=== PATIENT | male | born 1950 | race Caucasian/White ===

== ENCOUNTER 2020-11-04 23:09 | Emergency (ER) | payer MEDICARE, SELFPAY ==
[2020-11-04 23:09] VITALS: BP 165/90; PULSE 93; RESP 18; TEMP 36.3; O2SAT 98; BMI 26.6
[2020-11-04 23:12] VITALS: BP 165/90; PULSE 93; RESP 18; TEMP 36.3; O2SAT 98
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
[2020-11-04 23:53] LABS: Absolute Lymphocyte Count 1.42 X10^3/uL (0.83-4.51); Absolute Neutrophil Count 4.9 X10^3/uL (2.0-7.7); Basophil# 0.04 X10^3/uL; Basophil% 0.6 % (0-1); Eosinophil# 0.17 X10^3/uL; Eosinophils% 2.4 % (0-5); Hematocrit 41.1 % (40-54); Hemoglobin 14.2 g/dL (13.0-16.5); Lymphocyte # 1.42 X10^3/ul (4.0); Mean Corp Hgb Conc 34.5 g/dL (32-36); Mean Corpuscular Hgb 30.8 pg (27.0-32.0); Mean Corpuscular Volume 89.2 fL (80-94); Mean Platelet Vol. 9.5 fl (6.2-12.0); Monocyte# 0.54 X10^3/uL; Monocyte% 7.6 % (0-10); NRBC Flagged by Analyzer 0 % (0-5); Neutrophil # 4.92 X10^3/uL (2.7-7.7); Neutrophil % 69.3 % (47-70); Platelet Count 209 K/mm3 (150-450); RBC Distribution Width CV 12.7 % (11.6-14.6); RBC Distribution Width SD 41.9 fl (35.1-43.9); Red Blood Count 4.61 M/mm3 (4.6-6.2); White Blood Count 7.1 K/mm3 (4.4-11.0)
[2020-11-04] MEDS: Cefazolin 1 GM/50 ML BAG IV (23:54)
[2020-11-05 00:34] LABS: Anion Gap 8 (5-15); BUN 17 mg/dL (7-18); BUN/Creat Ratio 13.6 RATIO (10-20); Calcium,Total 8.5 mg/dL (8.5-10.1); Chloride 99 mmol/L (98-107); Creatinine, Serum 1.25 mg/dL (0.70-1.30); EST Glomerular Filtration Rate 60 mL/min (>60); Est Glom Filt Rate - Afr Amer 73 mL/min (>60); Estimated Creatinine Clearance 52.44 ml/min; Glucose 457 mg/dL (74-106); Potassium 4.1 mmol/L (3.5-5.1); Sodium Level 134 mmol/L (136-145)
[2020-11-05] MEDS: Insulin Lispro 100 UNIT/ML INSULN.PEN 12 UNIT SC (01:11)
[2020-11-05 01:15] VITALS: PULSE 90; RESP 17; O2SAT 98
== END 2020-11-05 01:16 | disposition home or self-care (01) ==
PROVIDERS: Emergency Provider Emergency Medicine
DX: T25.231A Burn of second degree of right toe(s) (nail), initial encounter (principal); L03.115 Cellulitis of right lower limb; X08.8XXA Exposure to other specified smoke, fire and flames, initial encounter; Y93.9 Activity, unspecified; Y92.9 Unspecified place or not applicable; Y99.9 Unspecified external cause status; R73.9 Hyperglycemia, unspecified; Z87.891 Personal history of nicotine dependence
CPT/HCPCS: 36415; 80048; 85025; 87040; 96365; 99284; J7050; A4216

== ENCOUNTER 2021-06-21 13:09 | Inpatient (IN) | payer MEDICARE, SELFPAY ==
[2021-06-21] VITALS (27 sets, daily range): BP systolic 104–151; BP diastolic 42–89; PULSE 61–85; RESP 14–23; TEMP 36.2–36.8; O2SAT 97–100; BMI 28.3; BMI 27.8
--- NOTE | 2021-06-21 13:21 | RAD_ITS ---
STUDY: X-RAY CHEST REASON FOR EXAM: Male, 71 years old. Chest pain TECHNIQUE: Single AP portable view of the chest. COMPARISON: None. FINDINGS: EKG electrodes are seen. Elevation of the right hemidiaphragm. The lungs are clear. There is no demonstrated pleural abnormality. Normal size heart. Normal mediastinum and nick. Normal visualized pulmonary arteries. There is atherosclerotic tortuosity of the aortic arch and descending thoracic aorta. There are diffuse degenerative changes of the visualized thoracic spine. There is degenerative osteoarthritis of the bilateral shoulders. There is no demonstrated abnormality of the visualized soft tissue structures of the upper abdomen. RAD/Chest 1 View (Portable) IMPRESSION: No acute abnormality is seen. Electronically Signed: Abiel Espana MD at 13:32 EST , Service support ,
--- NOTE | 2021-06-21 13:21 | EKG12_ITS ---
Test Reason : CP Blood Pressure : / mmHG Vent. Rate : 071 BPM Atrial Rate : 071 BPM P-R Int : 172 ms QRS Dur : 096 ms QT Int : 394 ms P-R-T Axes : 053 -03 086 degrees QTc Int : 428 ms Normal sinus rhythm Inferior infarct , possibly acute Lateral injury pattern ACUTE VT / STEMI Consider right ventricular involvement in acute inferior infarct Abnormal ECG Confirmed by NICOLA NOBLE, BUZZ ([id number]), helicopter utility aircrewman BERNABE JONES ([id number]) on 06/22/2021 11:34:43 AM Referred By: Juana Parson Confirmed By:BUZZ PETERSEN MD
--- NOTE | 2021-06-21 13:22 | EDS_ITS ---
HPI History of Present Illness Chief Complaint: Chest Pain Informant: patient and spouse/S.O. Narrative Narrative: 71-year-old male presents the emergency room with chest pain and left arm pain. He states that he had cataract surgery this morning. Afterwards he w ent out to breakfast. He states the food did not taste very well so he went home where he developed left arm pain and then just pain. He notes that he is a type II diabetic. He is a non-smoker. No coronary artery history. He denies any black or bloody stools or recent bleeding. PFSH PFS Medical History ST elevation myocardial infarction (STEMI) Type 2 diabetes mellitus Home Medications cephalexin 500 mg PO Q6 #40 capsule 11/05/20 [Rx Last Taken Unknown] metformin 1,000 mg PO BIDCM #60 tablet 11/05/20 [Rx Last Taken Unknown] Allergy/AdvReac Type Severity Reaction Status Date / Time No Known Allergies Allergy Verified 06/21/21 13:12 Surgical History Hx of cataract surgery Social History (Updated 06/21/21 @ 13:[address] Keaton Mcintyre, DO) Smoking Status: Former smoker substance use type: does not use ROS ROS ED Constitutional Constitutional ED: Denies chills or weight loss Eyes Eyes: Denies change in vision or diplopia ENT ENT ED: Denies ear pain, rhinorrhea or sore throat Cardiovascular Cardiovascular: Reports chest pain; Denies orthopnea, palpitations or racing heartbeat Respiratory/Chest Respiratory/Chest: Denies cough, dyspnea or orthopnea Gastrointestinal Gastrointestinal: Denies abdominal pain, diarrhea, nausea or vomiting Genitourinary Genitourinary ED: Denies dysuria, hematuria or urinary frequency Musculoskeletal Musculoskeletal: Denies arthralgias or myalgias Integumentary Denies abscess or rash Neurologic Neurologic: Denies headache(s) or weakness Psychiatric Psychiatric: Denies anxiety, depression, suicidal ideation or suicidal thoughts Endocrine Endocrinology: Denies polydipsia, polyphagia or polyuria Allergic/Immunologic Allergic/Immunologic ED: Denies mouth swelling, tongue swelling or urticaria EXAM Physical Exam Const Vital Signs: 06/21/21 13:12 Temperature 97.6 F L Temperature Source Temporal Pulse Rate 66 Respiratory Rate 15 Blood Pressure 151/84 H Blood Pressure Mean 106 Pulse Ox 98 Oxygen Delivery Method Room Air Positive well nourished and well developed General Appearance ED: well developed HEENT Reports normocephalic, head/scalp atraumatic, TM's clear and moist mucous membranes normocephalic and atraumatic Tympanic Membrane ED: Yes TM's clear Eyes EOMs intact bilaterally Eyes Narrative: Right eye dilated Neck no lymphadenopathy, supple and no JVD Resp normal respiratory effort and clear to auscultation bilaterally Cardio regular rate, regular rhythm and no murmurs GI normal to inspection, nondistended, normoactive bowel sounds and non-tender Palpation: soft Back/Spine no CVA tenderness and normal ROM Extremity normal to inspection General Extremety ED: Negative for edema General Extremity: Negative for edema Neuro oriented x3 and CN's II-XII intact bilaterally Sensorium / Orientation: alert Motor Exam: strength 5/5 throughout Psych mental status grossly normal Mood & Affect: Negative for depressed or tearful Skin no rashes or lesions noted and no wounds MDM MDM MDM Narrative Medical decision making narrative: As the patient was being hooked up to the monitor it was noted that he had ST elevation in lead II. I was called to the room and quickly performed history and physical. EKG confirmed STEMI which showed ST elevation 2 3 aVF and also V6 but also with Q waves inferiorly. And STEMI team was called. He received aspirin heparin Brilinta. Dr. Parson came to the room and the patient will be taken to the Director Of Enterprise Applications. My interpretation of the chest x-ray is no acute process. Lab Data Attestation: I reviewed the patient's lab results. EKG Initial EKG: Attestation: I personally reviewed and interpreted this EKG as follows: Comments: STEMI: Sinus rhythm with a ventricular rate of 71 bpm. Discharge Plan Dx/Rx/DC Orders Clinical Impression: ST elevation myocardial infarction (STEMI) Disposition Disposition: Acute Care Hospital [facility] Discharge Date/Time: 06/21/21 13:43
--- NOTE | 2021-06-21 13:30 | CM.ED ---
SOCIAL WORK Reason for Consult: STEMI Alert SW responded to STEMI alert. Patient's , Nyasia in room. Emotional support provided. was escorted to Brazing Machine Tender. Discussed with house sitter, able to have 1 healthy support person come to hospital. Discussed visitor policies with . calling patient's daughter at this time. Steffi Vick, NURSE'S ASSISTANT, C4 PLANNER
[2021-06-21] MEDS: Aspirin 81 MG TAB.CHEW 324 MG PO (13:32)
[2021-06-21] MEDS: TICAGRELOR 90 MG TABLET 180 MG PO (13:32)
[2021-06-21] MEDS: 0.9% Normal Saline 1,000 ML 999 ML IV (13:32)
[2021-06-21] MEDS: Heparin Injection (Vial) 5,000 UNIT/ML VIAL 4000 UNIT IV (13:32)
[2021-06-21 13:33] LABS: Absolute Lymphocyte Count 1.19 X10^3/uL (0.83-4.51); Basophil# 0.03 X10^3/uL; Basophil% 0.4 % (0-1); Eosinophil# 0.11 X10^3/uL; Eosinophils% 1.4 % (0-5); Hematocrit 42.2 % (40-54); Hemoglobin 14.5 g/dL (13.0-16.5); Lymphocyte # 1.19 X10^3/ul (0.83-4.51); Lymphocyte % 15.2 % (19-41); Mean Corp Hgb Conc 34.4 g/dL (32-36); Mean Corpuscular Hgb 31.3 pg (27.0-32.0); Mean Corpuscular Volume 91.1 fL (80-94); Mean Platelet Vol. 9.1 fl (6.2-12.0); Monocyte# 0.47 X10^3/uL; NRBC Flagged by Analyzer 0 % (0-5); Neutrophil # 6.01 X10^3/uL (2.7-7.7); Neutrophil % 76.9 % (47-70); Platelet Count 240 K/mm3 (150-450); RBC Distribution Width CV 12.1 % (11.6-14.6); RBC Distribution Width SD 40.7 fl (35.1-43.9); Red Blood Count 4.63 M/mm3 (4.6-6.2); White Blood Count 7.8 K/mm3 (4.4-11.0)
[2021-06-21 13:41] LABS: Prothrombin Time (Protime)PT. 12.9 SECONDS (11.7-14.9)
[2021-06-21 13:42] LABS: Partial Thromboplast Time 28.5 Seconds (24.1-36.2)
--- NOTE | 2021-06-21 13:50 | CM.ED ---
Patient's daughter arrived and escorted to Computer Information Systems Instructor, daughter informed of visitor policy. This worker to remain available for needs. Steffi Vick, PHYSICIAN ASSISTANT CERTIFIED, FRANCHISE SPECIALIST
[2021-06-21 13:53] LABS: Anion Gap 7 (5-15); BUN 15 mg/dL (7-18); BUN/Creat Ratio 13.6 RATIO (10-20); Calcium,Total 9.2 mg/dL (8.5-10.1); Chloride 100 mmol/L (98-107); EST Glomerular Filtration Rate 70 mL/min (>60); Est Glom Filt Rate - Afr Amer 85 mL/min (>60); Glucose 284 mg/dL (74-106); Potassium 4.2 mmol/L (3.5-5.1); Sodium Level 135 mmol/L (136-145); Troponin-I HS 394 pg/mL (3.0-78.0)
--- NOTE | 2021-06-21 14:15 | CM.ED ---
Multiple family members arriving to ER. Nursing and this worker discussed visitor policy with family. Family irate. This worker met with patient's and daughter in [employer] and again discussed visitor policy and visitor policy for ICU. Explained family unable to switch in and out visitors. understanding. Daughter on phone explaining visitor policy to family. Steffi Vick, HOSPICE HOME HEALTH AIDE, DIPLOMA MAKER
--- NOTE | 2021-06-21 14:44 | EKG12_ITS ---
Test Reason : STEMI Blood Pressure : / mmHG Vent. Rate : 083 BPM Atrial Rate : 083 BPM P-R Int : 166 ms QRS Dur : 082 ms QT Int : 384 ms P-R-T Axes : 051 -36 053 degrees QTc Int : 451 ms Normal sinus rhythm Left axis deviation Inferior-posterior infarct , possibly acute ACUTE PA / STEMI Consider right ventricular involvement in acute inferior infarct Abnormal ECG Confirmed by LAKESHIA NOBLE, GUADALUPE ([id number]), editor farm journal BERNABE JONES ([id number]) on 06/27/2021 11:32:11 AM Referred By: Juana Parson Confirmed By:GUADALUPE ASHER MD
--- NOTE | 2021-06-21 14:52 | PCI.CARDCATH ---
PCI Cardiac Cath Report PCI Report: Procedure performed; #1 Successful PCI/percutaneous coronary intervention of the culprit lesion/occluded distal RCA with SYLVIA 0 flow With predilatation and placement of drug-eluting stent 3 x 40 mm/Orsiro overlap with 3.5 x 22 mm, drug-eluting stent/Orsiro, postdilated with 3.5 x 20 mm NC/emerge MR balloon. Postprocedure 0% stenosis of the RCA which was the culprit occluded in the distal portion, with achievement of SYLVIA III flow. 2. Left heart catheterization 3. Selective left coronary angiography 4. Selective right cholangiography 5. Measurement of LVEDP and left ventriculogram 6. Placement of TR band to the right radial artery arteriotomy site. Preprocedure diagnosis; 71-year-old patient brought into the ER as an emergency with symptoms of chest pain and significantly abnormal EKG with ST elevation in the inferior lead Also noted there is already Q-wave in the inferior lead. Mild ST depression noted in the reciprocal lead V2 to V3 Evidently the patient has cataract surgery and developed chest pain., Seen and evaluated by the ER physician and STEMI alert was called I saw the patient in the ER he was having severe retrosternal chest pain, patient with history of diabetes mellitus he has no prior cardiac history. No history of smoking And he follows regularly with his primary care physician Patient was given 4000 IU heparin, Brilinta 180 mg and aspirin 324 mg in the ER and was taken to the Deli Bakery Clerk as an emergency. Consent; Risk and benefit of the procedure explained in detail to the patient elected to proceed informed consent obtained Diagnostic catheter and interventional equipment used; 1. 6 Palestinian sheath placed in the right radial artery 2. 5 Palestinian JL 3.5 diagnostic catheter 3. 5 Palestinian JR4 catheter 4. 5 Palestinian pigtail catheter 5. 6 Palestinian JR4 guide 6. 0.14 run-through extra floppy 180 cm straight guidewire 7. 2.0 x 15 mm emerge MR balloon 8. 3 x 40 mm drug-eluting stent/Orsiro 9. 3.5 x 22 mm drug-eluting stent/Orsiro 10. 3.5 x 20 mm NC/Emerge balloon 11. TR band applied to right radial artery to maintain hemostasis for arteriotomy site. Medication use in the Deli Bakery Clerk. 1. Heparin IV ACT level 2. 2 bolus of Integrilin with Integrilin infusion 3. 0.5 atropine IV for bradycardia 4. Normal saline IV 0.9% Procedure in detail; Patient brought as an emergency to the Deli Bakery Clerk, Access obtained from the right radial artery with a 6 Palestinian sheath placed in the right radial artery, proceed with the diagnostic catheter 5 Palestinian JL 3.5 advanced ascending aorta cannulated the left main coronary artery without difficulty, multiple views of the left coronary system were obtained, following this catheter exchanged for 5 Palestinian JR4 advanced and cannulated the RCA and 2 views of the right coronary artery which is a large dominant vessel Angiographic view studied and the culprit lesion identified as occluded mid RCA. Then will proceed with the 6 Palestinian JR4 guide advanced to the ascending aorta, cannulated the RCA, then we proceed with 0.014 run-through guidewire across the lesion noted remarkable improvement in the hemodynamic and resolution of the ST segment elevation with improvement in patient's symptoms then we proceed with balloon dilatation using 2 x 15 mm Emerge balloon, followed by placement of a drug-eluting stent 3 x 40 millimeters overlapped by 3.5 x 22 mm, drug-eluting stent, followed by postdilatation using NC balloon 3.5 x 20 mm to the proximal RCA and achieved an excellent result. Remarkable resolution of ST segment elevation patient remained stable hemodynamically and chest pain resolved. Following this we proceed with a 5 Palestinian angled glide pigtail catheter across the aortic valve and placed in the mid ventricle and left ventriculogram obtained 30 degree BE projection. Following this or catheters removed Findings hemodynamics; LV systolic function is preserved ejection fraction of around 55%, mild inferobasal hypokinesia There is no systolic gradient across aortic valve. There is no mitral regurgitation. LVEDP measured,/mild elevation Finding of coronary angiography; 1. Left main coronary artery calcified, with extension of calcification to the mid and proximal LAD Angiographically the left main had 20% proximal stenosis The left main coronary artery bifurcated into LAD and the left circumflex 2. The left anterior descending artery large vessel reach all the way to the apex Angiographically the proximal LAD had diffuse 20% extending into the mid LAD D1 moderate-sized vessel with diffuse proximal atherosclerosis of around 30% D2 also moderate sized vessel with diffuse atherosclerosis of around 20-30% proximal The distal left anterior descending artery had around 40-50% SYLVIA-3 flow noted in the left anterior descending artery There are abundant septal branches. Left circumflex artery had diffuse disease involving the proximal left circumflex artery., Tortuous vessel with a 50% stenosis OM1 had diffuse proximal atherosclerosis of around 50 to 60% small to moderate size. 3. 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 No complication in the Deli Bakery Clerk. Recommendation and plan; 1. Patient to continue on DAPT/Brilinta 90 mg twice daily, with low-dose aspirin 81 mg daily for 1 year 2. Atorvastatin 40 mg at bedtime 3. Control of risk factors patient is diabetic/will defer to medical team 4. We will add low-dose MERLYN inhibitor in addition to carvedilol as tolerated 5. We will schedule the patient for phase [address] [facility] cardiology team 6. Patient will follow with [facility] cardiology team for continuation of cardiac care. Juana Parson MD,FACC,[facility]
--- NOTE | 2021-06-21 15:33 | ED.RN ---
[phone]- shaunna . [phone] cell phone.
--- NOTE | 2021-06-21 15:35 | ECHOCS_ITS ---
Reason For Study: CAD/ASHD Procedure This was a 2D Doppler, Color Flow transthoracic echocardiogram. The study was technically difficult. Contrast injection was performed. Exam performed portable in patient room. Left Ventricle Normal LV size. The estimated ejection fraction is 55-60 %. Right Ventricle Normal right ventricle. Normal systolic function. Atria Normal left atrium. Normal right atrium. Mitral Valve The mitral valve is structurally normal. No prolapse or stenosis seen. No mitral valve insufficiency. Tricuspid Valve Normal tricuspid valve. Trivial tricuspid valve insufficiency. Aortic Valve Normal aortic valve. Pulmonic Valve The pulmonic valve is not well visualized. Great Vessels Normal aortic root. Pericardium/Pleural No pericardial effusion. Medication Diluted definity 3.0ml given slow IV push to enhance endocardial definition. MMode/2D Measurements & Calculations LVIDd: 4.9 cm IVSd: 1.3 cm Ao root diam: 4.1 cm LVIDs: 3.3 cm LVPWd: 1.3 cm RVDd: 3.8 cm FS: 34.0 % LVAd ap4: 34.1 cm2 LVAd ap2: 30.2 cm2 SV(MOD-sp4): 68.2 ml LVLd ap4: 9.1 cm LVLd ap2: 8.3 cm EDV(MOD-sp4): 104.7 ml EDV(MOD-sp2): 90.1 ml EDV(sp4-el): 108.3 ml EDV(sp2-el): 92.5 ml LVAs ap4: 19.5 cm2 LVAs ap2: 15.7 cm2 LVLs ap4: 8.9 cm LVLs ap2: 7.1 cm ESV(MOD-sp4): 36.5 ml ESV(MOD-sp2): 29.1 ml ESV(sp4-el): 36.1 ml ESV(sp2-el): 29.4 ml EF(MOD-sp4): 65.1 % EF(MOD-sp2): 67.7 % EF(sp4-el): 66.7 % SV(MOD-sp2): 61.0 ml SV(sp4-el): 72.3 ml LA dimension(2D): 3.4 cm Time Measurements MV dec time: 0.26 sec Doppler Measurements & Calculations MV E max myron: 51.0 cm/sec Lat Peak E' Myron: 6.9 cm/sec Med Peak E' Myron: 5.0 cm/sec MV A max myron: 67.6 cm/sec E/E' lat: 7.4 E/E' med: 10.1 MV E/A: 0.75 Ao V2 max: 97.2 cm/sec LV V1 max: 80.8 cm/sec PA V2 max: 74.3 cm/sec Ao max P.8 mmHg LV V1 max P.6 mmHg ECHO/Echo Complete W/ Contrast Interpretation Summary The estimated ejection fraction is 55-60 %. Mild inferior Hypokinesia Ordering Physician: Juana Parson Referring Physician: Sreedhar Leroy Performed By: Ashley Newton RDCS, RVT
--- NOTE | 2021-06-21 16:45 | PCM.HP.STD ---
Documented by User: YANA Rivas 06/21/21 17:00 HPI - General General Date of Admission: 06/21/21 Date of Service: 06/21/21 Chief Complaint: Chest pain HPI Narrative AMY MURPHY, is a 71 M who presents complaints of chest pain and left arm pain. Patient states that he is a known diabetic but otherwise has no other medical history. Patient states that you had cataract surgery this morning and afterwards went to breakfast but his food did not taste right so he just went home. Patient states that after arriving home he began to have left arm and chest pain. [facility] Medical History ST elevation myocardial infarction (STEMI) Type 2 diabetes mellitus Home Medications cephalexin 500 mg PO Q6 #40 capsule 11/05/20 [Rx Last Taken Unknown] metformin 1,000 mg PO BIDCM #60 tablet 11/05/20 [Rx Last Taken Unknown] Allergy/AdvReac Type Severity Reaction Status Date / Time No Known Allergies Allergy Verified 06/21/21 13:12 Surgical History Hx of cataract surgery Social History Smoking Status: Former smoker substance use type: does not use ROS Constitutional Constitutional: Denies anorexia, chills, fatigue, fever(s), malaise or weakness Cardiovascular Cardiovascular: Reports chest pain, dyspnea and radiating jaw, neck or arm pain; Denies edema, palpitations or syncope Respiratory/Chest Respiratory/Chest: Denies cough, shortness of breath at rest, shortness of breath with exertion or wheezing Gastrointestinal Gastrointestinal: Denies abdominal pain, constipation, diarrhea, nausea or vomiting Genitourinary Genitourinary: Denies dysuria Musculoskeletal Musculoskeletal: Denies back pain, extremity pain, joint pain or joint stiffness Integumentary Integumentary: Denies dry skin Neurologic Neurologic: Denies abnormal gait, abnormal speech, confusion or dizziness Psychiatric Psychiatric: Denies anxiety or depression Hematologic/Lymphatic Hematologic/Lymphatic: Denies anemia Vital Signs Vital Signs Vital Signs: 06/21/21 13:12 06/21/21 13:20 06/21/21 13:40 Temperature 97.6 F L 97.6 F L Temperature Source Temporal Temporal Pulse Rate 66 66 Respiratory Rate 15 15 Respiratory Effort Normal Non-Labored Respiratory Pattern Normal Blood Pressure 151/84 H 151/84 H 151/84 H Blood Pressure Mean 106 106 Blood Pressure Source Blood Pressure Position Blood Pressure Location Pulse Ox 98 98 Oxygen Delivery Method Room Air Room Air 06/21/21 14:53 06/21/21 15:00 06/21/21 15:15 Temperature 97.1 F L Temperature Source Temporal Pulse Rate 83 80 81 Respiratory Rate 16 16 15 Respiratory Effort Respiratory Pattern Blood Pressure 136/85 H 136/85 H 137/81 H Blood Pressure Mean 102 102 99 Blood Pressure Source Monitor Monitor Monitor Blood Pressure Position Semi-Fowlers Semi-Fowlers Semi-Fowlers Blood Pressure Location Left Arm Left Arm Left Arm Pulse Ox 100 97 98 Oxygen Delivery Method Room Air Room Air Room Air 06/21/21 15:30 06/21/21 15:35 Temperature Temperature Source Pulse Rate 80 Respiratory Rate 17 Respiratory Effort Respiratory Pattern Blood Pressure 129/77 H Blood Pressure Mean 94 Blood Pressure Source Monitor Blood Pressure Position Semi-Fowlers Blood Pressure Location Left Arm Pulse Ox 99 98 Oxygen Delivery Method Room Air Room Air Weight Weight: 188 lb 4.396 oz Body Mass Index (BMI) 27.8 Physical Exam Const alert and oriented x3 HEENT normocephalic and head/scalp atraumatic Eyes conjunctivae normal and no scleral icterus Pupil: dilated Positive for right (Patient had cataract surgery 06/21/2021) Neck supple General: trachea midline Resp normal respiratory effort, normal air movement and clear to auscultation bilaterally Cardio regular rate, regular rhythm, S1 normal heart sound, S2 normal heart sound and peripheral pulses 2+ throughout GI normal to inspection, nondistended, normoactive bowel sounds and soft to palpation Extremity normal capillary refill and no clubbing, cyanosis or edema General Extremity: no tenderness to palpation of joints or extremities Skin General Skin Exam: turgor normal Lesions: no lesions Rashes: no rashes Neuro oriented x3, moves all extremities, no focal motor deficits and no sensory deficits noted Psych thought process normal and affect normal Appearance: appropriate Results Lab / Micro Data Result Diagrams: 06/21/21 13:20 06/21/21 13:20 Labs: Laboratory Results - last 24 hr 06/21/21 13:20: WBC 7.8, RBC 4.63, Hgb 14.5, Hct 42.2, MCV 91.1, MCH 31.3, MCHC 34.4, RDW Std Deviation 40.7, RDW Coeff of Colt 12.1, Plt Count 240, MPV 9.1, Immature Gran % (Auto) 0.100, Neut % (Auto) 76.9 H, Lymph % (Auto) 15.2 L, [place] % (Auto) 6.0, Eos % (Auto) 1.4, Baso % (Auto) 0.4, Absolute Neuts (auto) 6.0, Absolute Lymphs (auto) 1.19, Nucleated RBC % 0 06/21/21 13:20: PT 12.9, INR 1.0, APTT 28.5 06/21/21 13:20: Sodium 135 L, Potassium 4.2, Chloride 100, Carbon Dioxide 28.0, Anion Gap 7, BUN 15, Creatinine 1.10, Estim Creat Clear Calc 60.70, Est GFR (MDRD) Af Amer 85, Est GFR (MDRD) Non-Af 70, BUN/Creatinine Ratio 13.6, Glucose 284 H, Calcium 9.2, Troponin I High Sens 394 H* Radiology Impression Chest X-Ray 06/21/21 13:21 IMPRESSION: No acute abnormality is seen. Electronically Signed: Abiel Espana MD at 13:32 EST , Service support , Assessment & Plan Assessment/Plan (1) Diabetes mellitus: QUALIFIERS: Diabetes mellitus complication detail: with cataract Diabetes mellitus complication status: with ophthalmic complications Diabetes mellitus assisted insulin use: without terminal block assembler use Diabetes mellitus type: type 2 Qualified Code(s): E11.36 - Type 2 diabetes mellitus with diabetic cataract (2) STEMI (ST elevation myocardial infarction): QUALIFIERS: Involved coronary artery: right coronary artery Qualified Code(s): I21.11 - ST elevation (STEMI) myocardial infarction involving right coronary artery PLAN: 1. STEMI -Admit to ICU for continuous cardiac monitoring -Patient underwent cardiac catheterization upon presentation to hospital. Per cardiology note patient's RCA was occluded, 100% lesion, drug-eluting stent x2 placed. -Patient will continue on Brilinta and low-dose aspirin per cardiology along with atorvastatin 40 mg -Per cardiology no MERLYN inhibitor as well as carvedilol will be initiated. -Cardiac rehab ordered -Cardiology to follow -Initial troponin 394 -CBC, BMP, EKG ordered for a.m. -Sinew Integrilin per cardiology orders 2. Diabetes mellitus type 2 -Patient currently managed on Metformin and glipizide -Will hold p.o. medications at this time -AC at bedtime blood sugars with sliding scale insulin ordered -Glucose on BMP 284 3. Cataracts -Patient underwent cataract surgery prior to arrival to ER -We will continue eyedrops as prescribed DVT prophylaxis-not indicated patient on Brilinta This patient was seen by YANA Rivas under the supervision of Dr. Gutierrez. Documented by User: Dr. Sreedhar Gutierrez DO 06/21/21 17:50 HPI - General General Date of Admission: 06/21/21 [facility] Medical History ST elevation myocardial infarction (STEMI) Type 2 diabetes mellitus Home Medications cephalexin 500 mg PO Q6 #40 capsule 11/05/20 [Rx Last Taken Unknown] metformin 1,000 mg PO BIDCM #60 tablet 11/05/20 [Rx Last Taken Unknown] Allergy/AdvReac Type Severity Reaction Status Date / Time No Known Allergies Allergy Verified 06/21/21 13:12 Surgical History Hx of cataract surgery Social History Smoking Status: Former smoker substance use type: does not use Results Lab / Micro Data Result Diagrams: 06/21/21 13:20 06/21/21 13:20 Charges/Coding Addendum Addendum: Patient was seen and examined today independently of Betty Cao, he came to the ER today with complaints of chest pain which he described as pressure-like in nature, he had radiation of the pain down his left arm and it was accompanied by nausea. Patient had cataract surgery on his right eye this morning which went uneventfully. Upon arrival at the emergency room at [facility] today, EKG was performed which showed an injury pattern in the inferior wall leads in keeping with an acute inferior wall [place]-STEMI. Patient was taken to the [facility] immediately for intervention. On examination he appeared in good health and spirits. Vital signs as documented. Skin warm and dry and without overt rashes. Neck without JVD, neck was supple, trachea midline, thyroid was normal. Lungs clear bilaterally, normal air movement was noted. Heart exam notable for regular rhythm, normal sounds and absence of murmurs, rubs or gallops. Abdomen unremarkable and without evidence of organomegaly, masses, or abdominal aortic enlargement. Bowel sounds are present, abdomen is not distended. Extremities nonedematous, no cyanosis was noted, no clubbing was noted. Neuro: Cranial nerves II through XII are grossly intact, no focal motor deficits were noted, sensation to light touch and pinprick intact, motor exam 5/5 throughout. Psych: Patient is alert and oriented x3, he does not appear anxious or depressed, he does not appear agitated. Patient underwent a cardiac catheterization and had two stents inserted in the right coronary artery, patient also had evidence of coronary disease in the left coronary artery but it was not deemed necessary for immediate intervention and instead will be treated with medical treatment. Patient has a history of type 2 diabetes and is on oral medications. Patient was transferred to the ICU for ongoing care after his procedure. He will be seen in the ICU by his beveling machine operator for follow-up examination tomorrow. I have reviewed Betty Cao's history and physical including her medical assessment and plan of care and endorse it. Visit Charges Inpatient E&M: 14334 Init Hosp L3
--- NOTE | 2021-06-21 18:45 | NURSING ---
patient continues to move and use his right arm despite being instructed numerous times to not use/move his arm. Cath site continues to ooze. Patient once again instructed to not move/use his right arm. TR band started with 15ml of air, removed 12ml and have put 6ml of air back into the TR band. Currently has 9ml in the TR band
[2021-06-21] MEDS: OFLOXACIN 0.3% 1 DRP OTIC (22:09)
[2021-06-21] MEDS: Carvedilol 3.125 MG TABLET PO (22:09)
[2021-06-21] MEDS: Atorvastatin Calcium 40 MG Tablet PO (22:10)
[2021-06-21 22:25] LABS: Bedside Glucose 152 mg/dL (70-110)
[2021-06-22] VITALS (25 sets, daily range): BP systolic 94–126; BP diastolic 55–89; PULSE 56–69; RESP 10–21; TEMP 36.3–37.5; O2SAT 94–100
[2021-06-22 04:04] LABS: Absolute Neutrophil Count 6.6 X10^3/uL (2.0-7.7); Basophil# 0.03 X10^3/uL; Basophil% 0.3 % (0-1); Eosinophil# 0.15 X10^3/uL; Eosinophils% 1.7 % (0-5); Hematocrit 36.7 % (40-54); Hemoglobin 12.2 g/dL (13.0-16.5); Lymphocyte % 15.8 % (19-41); Mean Corp Hgb Conc 33.2 g/dL (32-36); Mean Corpuscular Volume 93.1 fL (80-94); Mean Platelet Vol. 9.1 fl (6.2-12.0); Monocyte% 7.9 % (0-10); NRBC Flagged by Analyzer 0 % (0-5); Neutrophil # 6.56 X10^3/uL (2.7-7.7); Neutrophil % 74.1 % (47-70); Platelet Count 201 K/mm3 (150-450); RBC Distribution Width SD 41.4 fl (35.1-43.9); Red Blood Count 3.94 M/mm3 (4.6-6.2); White Blood Count 8.9 K/mm3 (4.4-11.0)
[2021-06-22 04:17] LABS: Anion Gap 7 (5-15); BUN 13 mg/dL (7-18); BUN/Creat Ratio 14.5 RATIO (10-20); Calcium,Total 8.2 mg/dL (8.5-10.1); Chloride 104 mmol/L (98-107); EST Glomerular Filtration Rate 89 mL/min (>60); Est Glom Filt Rate - Afr Amer 107 mL/min (>60); Estimated Creatinine Clearance 74.19 ml/min; Glucose 165 mg/dL (74-106); Potassium 3.7 mmol/L (3.5-5.1); Sodium Level 135 mmol/L (136-145)
--- NOTE | 2021-06-22 05:11 | EKG12_ITS ---
Test Reason : AM EKG Blood Pressure : / mmHG Vent. Rate : 064 BPM Atrial Rate : 064 BPM P-R Int : 168 ms QRS Dur : 076 ms QT Int : 408 ms P-R-T Axes : 049 -38 037 degrees QTc Int : 420 ms Normal sinus rhythm Left axis deviation Inferior infarct , age undetermined Abnormal ECG Confirmed by NICOLA NOBLE, BUZZ ([id number]), marketing editor BERNABE JONES ([id number]) on 06/26/2021 10:45:25 AM Referred By: Juana Parson Confirmed By:BUZZ PETERSEN MD
[2021-06-22 07:42] LABS: Cholesterol 148 mg/dL (200); High Density Lipoprotein 29 mg/dL; Triglycerides 200 mg/dL; Very Low Density Lipoprotein 40 mg/dL (5-40)
[2021-06-22] MEDS: Lisinopril 5 MG Tablet PO ×2 (08:20→08:23)
[2021-06-22] MEDS: Carvedilol 3.125 MG TABLET PO ×2 (08:20→22:44)
[2021-06-22] MEDS: TICAGRELOR 90 MG TABLET PO ×2 (08:23→22:44)
[2021-06-22] MEDS: Insulin Lispro 100 UNIT/ML INSULN.PEN SC ×3 (08:23→22:50)
[2021-06-22] MEDS: OFLOXACIN 0.3% 1 DRP OTIC ×4 (08:24→22:43)
[2021-06-22] MEDS: Aspirin 81 MG TAB.CHEW PO (08:24)
[2021-06-22 10:09] LABS: Hemoglobin A1c 7.1 % (3.8-5.6)
--- NOTE | 2021-06-22 10:29 | CON.PCM.CA_ITS ---
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 He does have moderated diffuse disease of his Cx, OM1. He also has a subtotal acute marginal branch with diffuse disease, these were opted to be treated medically at this time. * He was started on Brilinta, (this will need to be continued for at least one year ) , ASA, Lisinopril, Carvedilol, and Atorvastatin. * plan would be to refer to cardiac rehab on OP basis * Plan it to obtain stress test after f/u appt for evaluation of Cx and OM1. * Obtain echo to evaluate LV function HPI Consult Data Date of Consult: 06/21/21 HPI Narrative HPI Narrative: AMY MURPHY, is a 71 M who presented to the ER on 06/21/2021 with chest pain and significantly abnormal EKG with ST elevation in the inferior lead, Q-wave in the inferior lead. Mild ST depression noted in the reciprocal lead V2 to V3. He had just had cataract surgery when his chest pain occurred. He does have a hx of diabetes. He was urgently sent for a cardiac cath and underwent stenting to his RCA. 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 ST elevation myocardial infarction (STEMI) Type 2 diabetes mellitus Home Medications cephalexin 500 mg PO Q6 #40 capsule 11/05/20 [Rx Last Taken Unknown] metformin 1,000 mg PO BIDCM #60 tablet 11/05/20 [Rx Last Taken Unknown] bromfenac 1 drp RIGHT EYE QHS 06/21/21 [History Last Taken Unknown] ofloxacin 1 drp RIGHT EYE 4X/DAY 06/21/21 [History Last Taken Unknown] Allergy/AdvReac Type Severity Reaction Status Date / Time No Known Allergies Allergy Verified 06/21/21 13:12 Surgical History (Updated 06/22/21 @ 09:09 by Romina Jason) Hx of cataract surgery Presence of coronary angioplasty implant and graft (~06/21/21) Presence of stent in coronary artery (~06/21/21) Social History Smoking Status: Former smoker substance use type: does not use ROS Constitutional Constitutional: Denies anorexia, chills, fatigue, fever(s), malaise or weakness Cardiovascular Cardiovascular: Reports chest pain, dyspnea and radiating jaw, neck or arm pain; Denies edema, palpitations or syncope Respiratory/Chest Respiratory/Chest: Denies cough, shortness of breath at rest, shortness of breath with exertion or wheezing Gastrointestinal Gastrointestinal: Denies abdominal pain, constipation, diarrhea, nausea or vomiting Genitourinary Genitourinary: Denies dysuria Musculoskeletal Musculoskeletal: Denies back pain, extremity pain, joint pain or joint stiffness Integumentary Integumentary: Denies dry skin Neurologic Neurologic: Denies abnormal gait, abnormal speech, confusion or dizziness Psychiatric Psychiatric: Denies anxiety or depression Hematologic/Lymphatic Hematologic/Lymphatic: Denies anemia Physical Exam Const alert and oriented x3 HEENT normocephalic and head/scalp atraumatic Eyes conjunctivae normal and no scleral icterus Pupil: dilated Positive for right (Patient had cataract surgery 06/21/2021) Neck supple General: trachea midline Resp normal respiratory effort, normal air movement and clear to auscultation bilaterally Cardio regular rate, regular rhythm, S1 normal heart sound, S2 normal heart sound and peripheral pulses 2+ throughout GI normal to inspection, nondistended, normoactive bowel sounds and soft to palpation Extremity normal capillary refill and no clubbing, cyanosis or edema General Extremity: no tenderness to palpation of joints or extremities Skin General Skin Exam: turgor normal Lesions: no lesions Rashes: no rashes Neuro oriented x3, moves all extremities, no focal motor deficits and no sensory deficits noted Psych thought process normal and affect normal Appearance: appropriate Risk Stratification Risk Stratification Applicable: No Charges/Coding Visit Charges Office Visits / Consults: [id number] IP Consult L5 Objective Data Vital Signs: Vital Signs Temp Pulse Resp BP Pulse Ox 97.4 F L 66 18 112/70 98 06/22/21 07:00 06/22/21 10:00 06/22/21 10:00 06/22/21 10:00 06/22/21 10:00 Oxygen Delivery Method Room Air Weight: 188 lb 4.396 oz Body Mass Index (BMI) 27.8 Intake & Output: Intake and Output for Last 24 Hours 06/20/21 06/21/21 06/22/21 23:59 23:59 23:59 Intake Total 1247.88 / 1397.88 390 / 390 Output Total 450 / 925 1095 / 1095 Balance 797.88 / 472.88 -705 / -705 Lab / Micro Data Result Diagrams: 06/22/21 03:55 06/22/21 03:55 Labs: Laboratory Results - last 24 hr 06/21/21 13:20: WBC 7.8, RBC 4.63, Hgb 14.5, Hct 42.2, MCV 91.1, MCH 31.3, MCHC 34.4, RDW Std Deviation 40.7, RDW Coeff of Oclt 12.1, Plt Count 240, MPV 9.1, Immature Gran % (Auto) 0.100, Neut % (Auto) 76.9 H, Lymph % (Auto) 15.2 L, [place] % (Auto) 6.0, Eos % (Auto) 1.4, Baso % (Auto) 0.4, Absolute Neuts (auto) 6.0, Absolute Lymphs (auto) 1.19, Nucleated RBC % 0 06/21/21 13:20: PT 12.9, INR 1.0, APTT 28.5 06/21/21 13:20: Sodium 135 L, Potassium 4.2, Chloride 100, Carbon Dioxide 28.0, Anion Gap 7, BUN 15, Creatinine 1.10, Estim Creat Clear Calc 60.70, Est GFR (MDRD) Af Amer 85, Est GFR (MDRD) Non-Af 70, BUN/Creatinine Ratio 13.6, Glucose 284 H, Calcium 9.2, Troponin I High Sens 394 H* 06/21/21 22:07: POC Glucose 152 H 06/22/21 03:55: WBC 8.9, RBC 3.94 L, Hgb 12.2 L, Hct 36.7 L, MCV 93.1, MCH 31.0, MCHC 33.2, RDW Std Deviation 41.4, RDW Coeff of Colt 12.0, Plt Count 201, MPV 9.1, Immature Gran % (Auto) 0.200, Neut % (Auto) 74.1 H, Lymph % (Auto) 15.8 L, [place] % (Auto) 7.9, Eos % (Auto) 1.7, Baso % (Auto) 0.3, Absolute Neuts (auto) 6.6, Absolute Lymphs (auto) 1.40, Nucleated RBC % 0 06/22/21 03:55: Sodium 135 L, Potassium 3.7, Chloride 104, Carbon Dioxide 24.0, Anion Gap 7, BUN 13, Creatinine 0.90, Estim Creat Clear Calc 74.19, Est GFR (MDRD) Af Amer 107, Est GFR (MDRD) Non-Af 89, BUN/Creatinine Ratio 14.5, Glucose 165 H, Calcium 8.2 L 06/22/21 03:55: Triglycerides 200 H, Cholesterol 148, LDL Cholesterol 79, VLDL Cholesterol 40, HDL Cholesterol 29 L 06/22/21 03:55: Hemoglobin A1c 7.1 H Cardiology Labs/Tests 06/21/21 13:20: WBC 7.8, RBC 4.63, Hgb 14.5, Hct 42.2, MCV 91.1, MCH 31.3, MCHC 34.4, Plt Count 240, MPV 9.1, Immature Gran % (Auto) 0.100, Neut % (Auto) 76.9 H , Lymph % (Auto) 15.2 L, [place] % (Auto) 6.0, Eos % (Auto) 1.4, Baso % (Auto) 0.4, Absolute Neuts (auto) 6.0, Nucleated RBC % 0 06/21/21 13:20: PT 12.9, INR 1.0, APTT 28.5 06/21/21 13:20: Sodium 135 L, Potassium 4.2, Chloride 100, Carbon Dioxide 28.0, Anion Gap 7, BUN 15, Creatinine 1.10, Est GFR (MDRD) Af Amer 85, Est GFR (MDRD) Non-Af 70, BUN/Creatinine Ratio 13.6, Glucose 284 H, Calcium 9.2 06/22/21 03:55: WBC 8.9, RBC 3.94 L, Hgb 12.2 L, Hct 36.7 L, MCV 93.1, MCH 31.0, MCHC 33.2, Plt Count 201, MPV 9.1, Immature Gran % (Auto) 0.200, Neut % (Auto) 74.1 H, Lymph % (Auto) 15.8 L, [place] % (Auto) 7.9, Eos % (Auto) 1.7, Baso % (Auto) 0.3, Absolute Neuts (auto) 6.6, Nucleated RBC % 0 06/22/21 03:55: Sodium 135 L, Potassium 3.7, Chloride 104, Carbon Dioxide 24.0, Anion Gap 7, BUN 13, Creatinine 0.90, Est GFR (MDRD) Af Amer 107, Est GFR (MDRD) Non-Af 89, BUN/Creatinine Ratio 14.5, Glucose 165 H, Calcium 8.2 L 06/22/21 03:55: Triglycerides 200 H, Cholesterol 148, LDL Cholesterol 79, VLDL Cholesterol 40, HDL Cholesterol 29 L 06/22/21 03:55: Hemoglobin A1c 7.1 H Cardiac cath with PCI 06/21/2021: LV systolic function is preserved ejection fraction of around 55%, mild inferobasal hypokinesia There is no systolic gradient across aortic valve. There is no mitral regurgitation. LVEDP measured,/mild elevation Finding of coronary angiography; 1. Left main coronary artery calcified, with extension of calcification to the mid and proximal LAD Angiographically the left main had 20% proximal stenosis The left main coronary artery bifurcated into LAD and the left circumflex 2. The left anterior descending artery large vessel reach all the way to the apex Angiographically the proximal LAD had diffuse 20% extending into the mid LAD D1 moderate-sized vessel with diffuse proximal atherosclerosis of around 30% D2 also moderate sized vessel with diffuse atherosclerosis of around 20-30% proximal The distal left anterior descending artery had around 40-50% SYLVIA-3 flow noted in the left anterior descending artery There are abundant septal branches. Left circumflex artery had diffuse disease involving the proximal left circumflex artery., Tortuous vessel with a 50% stenosis OM1 had diffuse proximal atherosclerosis of around 50 to 60% small to moderate size. 3. 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 No complication in the Test Development Engineer. Radiography Diagnostic Testing: Radiology Impression Chest X-Ray 06/21/21 13:21 IMPRESSION: No acute abnormality is seen. Electronically Signed: Abiel Espana MD at 13:32 EST , Service support ,
--- NOTE | 2021-06-22 11:05 | CASEMGMT ---
RN CM Face to Face with patient for initial transition planning/care coordination assessment. RN CM introduced self and role at [facility]. Patient lying in bed, alert and oriented. Patient willing to participate in assessment and is able to answer all questions appropriately. Care providers, pharmacy, and demographics verified. Patient wishes to discharge home, denies need for home health at this time. Patient states he has no further needs or concerns at this time. CM to follow for discharge planning needs that may arise. PCP: Rad Specialists: JARRETT Preferred Pharmacy: [facility] savings card provided to patient. Insurance: [employer] Prescription Benefit: yes Living Will/HPOA: yes, Nyasia Maria LNOK: Living Arrangements: Patient lives with in a single story home with 2 steps and railing to enter the home. Patient is independent at home. Transportation: self/ DME/HHC: Patient states he has raised toilet, walker, wheelchair at home. Patient denies previous HHC or SNF Disposition Plan: Patient to discharge home with family support and follow-up plans in place. Darcy DEAL, RN, CM
--- NOTE | 2021-06-22 11:13 | PN.CARD_ITS ---
Documented by User: Romina KYLE, ANABELLA 06/22/21 11:19 Subjective Subjective Pt is doing better today, no chest pain. Objective Data Vital Signs: Vital Signs Temp Pulse Resp BP Pulse Ox 97.4 F L 66 18 112/70 98 06/22/21 07:00 06/22/21 10:00 06/22/21 10:00 06/22/21 10:00 06/22/21 10:00 Oxygen Delivery Method Room Air Weight: 188 lb 4.396 oz Body Mass Index (BMI) 27.8 Intake & Output: Intake and Output for Last 24 Hours 06/20/21 06/21/21 06/22/21 23:59 23:59 23:59 Intake Total 1247.88 / 1397.88 390 / 390 Output Total 450 / 925 1095 / 1095 Balance 797.88 / 472.88 -705 / -705 Lab / Micro Data Result Diagrams: 06/22/21 03:55 06/22/21 03:55 Labs: Laboratory Results - last 24 hr 06/21/21 13:20: WBC 7.8, RBC 4.63, Hgb 14.5, Hct 42.2, MCV 91.1, MCH 31.3, MCHC 34.4, RDW Std Deviation 40.7, RDW Coeff of Colt 12.1, Plt Count 240, MPV 9.1, Immature Gran % (Auto) 0.100, Neut % (Auto) 76.9 H, Lymph % (Auto) 15.2 L, [place] % (Auto) 6.0, Eos % (Auto) 1.4, Baso % (Auto) 0.4, Absolute Neuts (auto) 6.0, Absolute Lymphs (auto) 1.19, Nucleated RBC % 0 06/21/21 13:20: PT 12.9, INR 1.0, APTT 28.5 06/21/21 13:20: Sodium 135 L, Potassium 4.2, Chloride 100, Carbon Dioxide 28.0, Anion Gap 7, BUN 15, Creatinine 1.10, Estim Creat Clear Calc 60.70, Est GFR (MDRD) Af Amer 85, Est GFR (MDRD) Non-Af 70, BUN/Creatinine Ratio 13.6, Glucose 284 H, Calcium 9.2, Troponin I High Sens 394 H* 06/21/21 22:07: POC Glucose 152 H 06/22/21 03:55: WBC 8.9, RBC 3.94 L, Hgb 12.2 L, Hct 36.7 L, MCV 93.1, MCH 31.0, MCHC 33.2, RDW Std Deviation 41.4, RDW Coeff of Colt 12.0, Plt Count 201, MPV 9.1, Immature Gran % (Auto) 0.200, Neut % (Auto) 74.1 H, Lymph % (Auto) 15.8 L, [place] % (Auto) 7.9, Eos % (Auto) 1.7, Baso % (Auto) 0.3, Absolute Neuts (auto) 6.6, Absolute Lymphs (auto) 1.40, Nucleated RBC % 0 06/22/21 03:55: Sodium 135 L, Potassium 3.7, Chloride 104, Carbon Dioxide 24.0, Anion Gap 7, BUN 13, Creatinine 0.90, Estim Creat Clear Calc 74.19, Est GFR (MDRD) Af Amer 107, Est GFR (MDRD) Non-Af 89, BUN/Creatinine Ratio 14.5, Glucose 165 H, Calcium 8.2 L 06/22/21 03:55: Triglycerides 200 H, Cholesterol 148, LDL Cholesterol 79, VLDL Cholesterol 40, HDL Cholesterol 29 L 06/22/21 03:55: Hemoglobin A1c 7.1 H Cardiology Labs/Tests 06/21/21 13:20: WBC 7.8, RBC 4.63, Hgb 14.5, Hct 42.2, MCV 91.1, MCH 31.3, MCHC 34.4, Plt Count 240, MPV 9.1, Immature Gran % (Auto) 0.100, Neut % (Auto) 76.9 H , Lymph % (Auto) 15.2 L, [place] % (Auto) 6.0, Eos % (Auto) 1.4, Baso % (Auto) 0.4, Absolute Neuts (auto) 6.0, Nucleated RBC % 0 06/21/21 13:20: PT 12.9, INR 1.0, APTT 28.5 06/21/21 13:20: Sodium 135 L, Potassium 4.2, Chloride 100, Carbon Dioxide 28.0, Anion Gap 7, BUN 15, Creatinine 1.10, Est GFR (MDRD) Af Amer 85, Est GFR (MDRD) Non-Af 70, BUN/Creatinine Ratio 13.6, Glucose 284 H, Calcium 9.2 06/22/21 03:55: WBC 8.9, RBC 3.94 L, Hgb 12.2 L, Hct 36.7 L, MCV 93.1, MCH 31.0, MCHC 33.2, Plt Count 201, MPV 9.1, Immature Gran % (Auto) 0.200, Neut % (Auto) 74.1 H, Lymph % (Auto) 15.8 L, [place] % (Auto) 7.9, Eos % (Auto) 1.7, Baso % (Auto) 0.3, Absolute Neuts (auto) 6.6, Nucleated RBC % 0 06/22/21 03:55: Sodium 135 L, Potassium 3.7, Chloride 104, Carbon Dioxide 24.0, Anion Gap 7, BUN 13, Creatinine 0.90, Est GFR (MDRD) Af Amer 107, Est GFR (MDRD) Non-Af 89, BUN/Creatinine Ratio 14.5, Glucose 165 H, Calcium 8.2 L 06/22/21 03:55: Triglycerides 200 H, Cholesterol 148, LDL Cholesterol 79, VLDL Cholesterol 40, HDL Cholesterol 29 L 06/22/21 03:55: Hemoglobin A1c 7.1 H Rhythm: SR ECHO: pending Cardiac Cath with PCI: Cardiac cath with PCI 06/21/2021: LV systolic function is preserved ejection fraction of around 55%, mild inferobasal hypokinesia There is no systolic gradient across aortic valve. There is no mitral regurgitation. LVEDP measured,/mild elevation Finding of coronary angiography; 1. Left main coronary artery calcified, with extension of calcification to the mid and proximal LAD Angiographically the left main had 20% proximal stenosis The left main coronary artery bifurcated into LAD and the left circumflex 2. The left anterior descending artery large vessel reach all the way to the apex Angiographically the proximal LAD had diffuse 20% extending into the mid LAD D1 moderate-sized vessel with diffuse proximal atherosclerosis of around 30% D2 also moderate sized vessel with diffuse atherosclerosis of around 20-30% proximal The distal left anterior descending artery had around 40-50% SYLVIA-3 flow noted in the left anterior descending artery There are abundant septal branches. Left circumflex artery had diffuse disease involving the proximal left circumflex artery., Tortuous vessel with a 50% stenosis OM1 had diffuse proximal atherosclerosis of around 50 to 60% small to moderate size. 3. 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 No complication in the Lavatory Attendant. Radiography Diagnostic Testing: Radiology Impression Chest X-Ray 06/21/21 13:21 IMPRESSION: No acute abnormality is seen. Electronically Signed: Abiel Espana MD at 13:32 EST , Service support , Physical Exam Const alert and oriented x3 HEENT normocephalic and head/scalp atraumatic Eyes PERRL, EOMs intact bilaterally, conjunctivae normal and no scleral icterus Neck supple General: trachea midline Resp normal respiratory effort, normal air movement and clear to auscultation bilaterally Cardio regular rate, regular rhythm, S1 normal heart sound, S2 normal heart sound and peripheral pulses 2+ throughout GI normal to inspection, nondistended, normoactive bowel sounds and soft to palpation Extremity normal capillary refill and no clubbing, cyanosis or edema General Extremity: no tenderness to palpation of joints or extremities Skin General Skin Exam: turgor normal Lesions: no lesions Rashes: no rashes Neuro oriented x3, moves all extremities, no focal motor deficits and no sensory deficits noted Psych thought process normal and affect normal Appearance: appropriate Assessment & Plan Assessment/Plan (1) STEMI (ST elevation myocardial infarction): QUALIFIERS: Involved coronary artery: right coronary artery Qualified Code(s): I21.11 - ST elevation (STEMI) myocardial infarction involving right coronary artery (2) Atherosclerotic heart disease of [place] coronary artery without angina pectoris: (3) Diabetes mellitus: QUALIFIERS: Diabetes mellitus complication detail: with cataract Diabetes mellitus complication status: with ophthalmic complications Diabetes mellitus group home insulin use: without dedicated intermodal truck driver use Diabetes mellitus type: type 2 Qualified Code(s): E11.36 - Type 2 diabetes mellitus with diabetic cataract PLAN: * Pt had stenting to his RCA. He does have moderated diffuse disease of his Cx, OM1. He also has a subtotal acute marginal branch with diffuse disease, these were opted to be treated medically at this time. * He was started on Brilinta, (this will need to be continued for at least one year ) , ASA, Lisinopril, Carvedilol, and Atorvastatin. * plan would be to refer to cardiac rehab on OP basis * Plan it to obtain stress test after f/u appt for evaluation of Cx and OM1. * echo pending Charges/Coding Visit Charges Inpatient E&M: 05166 Subs Hosp L3 Documented by User: Dr. Juana Parson MD 06/22/21 14:47 Subjective Subjective This patient seen and evaluated today at bedside along with the nursing staff and the midlevel Stable clinically no symptoms reported today post PCI/STEMI acute inferior LA Lab / Micro Data Result Diagrams: 06/22/21 03:55 06/22/21 03:55 Physical Exam Narrative Patient alert and orientated Cardiac examination; S1-S2 normal, no murmur, no systolic or diastolic murmur, no pericardial rub monitoring manager revealed normal sinus rhythm. Chest examination; clear to auscultation bilateral with no added sounds. Examination of the abdomen; soft Examination lower extremity no lower extremity edema Central nervous system exam no focal neurological deficit. Assessment & Plan Assessment/Plan (1) STEMI (ST elevation myocardial infarction): QUALIFIERS: Involved coronary artery: right coronary artery Qualified Code(s): I21.11 - ST elevation (STEMI) myocardial infarction involving right coronary artery (2) Atherosclerotic heart disease of [place] coronary artery without angina pectoris: (3) Diabetes mellitus: QUALIFIERS: Diabetes mellitus complication detail: with cataract Diabetes mellitus complication status: with ophthalmic complications Diabetes mellitus group home insulin use: without group home use Diabetes mellitus type: type 2 Qualified Code(s): E11.36 - Type 2 diabetes mellitus with diabetic cataract (4) Presence of stent in coronary artery: PLAN: This patient seen and evaluated today, post STEMI/acute inferior LA Underwent successful PCI of the culprit lesion occluded distal RCA with placemen t of drug-eluting stent Postprocedure patient remained stable hemodynamically with no symptoms of chest pain. Right radial pulses palpable From cardiac standpoint we reviewed and discussed all his current medication patient will continue on DAPT/dual antiplatelet therapy with Brilinta 90 mg twice daily in addition to low-dose aspirin 81 mg Beta-sujit carvedilol, statin atorvastatin and MERLYN inhibitor lisinopril patient had history of diabetes I will defer to the medical team to manage his the diabetes and will plan to follow-up with the [facility] cardiology team as an outpatient. Bedside echocardiogram LV function is preserved with no significant valvular abnormality. Also patient will be scheduled for cardiac rehab phase 1.
[2021-06-22 11:55] LABS: Bedside Glucose 147 mg/dL (70-110)
--- NOTE | 2021-06-22 12:33 | CRPHASE1 ---
Patient Communication PHII Cardiac Rehab Discussed with Patient:: Yes Guide to Cardiac Rehab Given to Patient:: Yes Cardiac Rehab Facility Choice List Given to Patient:: Yes Choice Program [facility] CR PHII:: Communication Given to CR Choice Program Other:: Communication Given to CR Network Contract Manager:: Juana Parson Phase II Cardiac Rehab:: Yes Sessions:: 36 sessions - 3 days/wk, 12 weeks Cardiac Rehabilitation Info Cardiac Rehabilitation Program Information: Cardiac Rehabilitation is important for patients like you who are recovering from a heart problem. Cardiac rehabilitation programs are recognized as integral to the continued care of the patient with coronary heart disease. The cardiac rehabilitation program is designed to optimize a patient's physical, psychological, and social functioning. Health home care assistant work in cardiac rehabilitation programs and assist you with getting the treatments you need to get stronger and healthier - like exercise, healthy eating habits, and medications. Cardiac rehabilitation has been show to help people with heart problems live longer and have better life enjoyment than people who do not go to cardiac rehabilitation. Please contact the Cardiac Rehabilitation Program at [facility] at in two weeks if you have not heard from them.
--- NOTE | 2021-06-22 12:34 | CRPH1.INSTRU ---
General Education CAD and cardiac anatomy and function:: Patient communicates acknowledgment Explanation of diagnoses and procedures:: Patient communicates acknowledgment Sign/Symptoms of [place]:: Patient communicates acknowledgment Antiplatelet therapy: Patient communicates acknowledgment Smoking Patient Nicotine/Smoking Risk Factors Are:: Non-smoker Recommendations Include:: Previous smoker; encourage continued cessation Nicotine/Smoking Response Code:: Patient communicates acknowledgment Dyslipidemia Patient Dyslipidemia Risk Factors Are:: Total Cholesterol, Triglycerides, HDL, LDL Recommendations Include:: Lipid profile provided, Reviewed NCEP/ATP guidelines, Therapeutic Lifestyle Change dietary guidelines Dyslipidemia Response Code:: Patient communicates acknowledgment Overweight/Obesity Patient Overweight/Obesity Risk Factors Are:: Overweight = 26-29 Recommendations Include:: Weight loss of 5-10%, Reduced calorie diet Overweight/Obesity:: Patient communicates acknowledgment Hypertension Patient Hypertension Risk Factors Are:: No documented hx of HTN Heart Disease Patient Heart Disease Risk Factors Are:: Family history of heart disease < 65 years old Recommendations Include:: Educated family members of their risk, Educated family members of importance of prevention of heart disease Heart Disease Response Code:: Patient communicates acknowledgment Diabetes Patient Diabetes Risk Factors Are:: Elevated blood sugars Recommendations Include:: Maintain fasting blood sugars 70-110 md/dL, Maintain HgbA1c of 6% or less, Monitor blood sugar as prescribed, Diabetic dietary guidelines, Decrease/maintain body weight Diabetes:: Patient communicates acknowledgment Sedentary Patient Sedentary Risk Factors Are:: Lack of regular exercise Recommendations Include:: Aerobic exercise 5-7 times/week for 20-30 minutes continuously, Benefits of regular exercise, Discussed home walking program, Monitored Outpatient Cardiac Rehab Sedentary Response Code:: Patient communicates acknowledgment Stress Recommendations Include:: Identification of stressors, and assessment of coping skills, Stress management techniques Stress Response Code:: Patient communicates acknowledgment
--- NOTE | 2021-06-22 16:01 | PN.HOSP_ITS ---
Subjective Subjective Patient presented yesterday as a STEMI and had 2 stents placed in the RCA. No issues overnight. The patient states that his inability to sleep is disrupted by the compression device on his wrist but once that was removed at 4 AM he got good sleep. He is anxious to go home. Objective Data Objective Data Vital Signs: Vital Signs Temp Pulse Resp BP Pulse Ox 98.1 F 66 18 96/66 98 06/22/21 12:00 06/22/21 13:00 06/22/21 13:00 06/22/21 13:00 06/22/21 13:00 Oxygen Delivery Method Room Air Weight: 85.4 kg Body Mass Index (BMI) 27.8 Intake & Output: Intake and Output for Last 24 Hours 06/20/21 06/21/21 06/22/21 23:59 23:59 23:59 Intake Total 1247.88 / 1397.88 750 / 750 Output Total 450 / 925 1345 / 1345 Balance 797.88 / 472.88 -595 / -595 Lab / Micro Data Result Diagrams: 06/22/21 03:55 06/22/21 03:55 Labs: Laboratory Results - last 24 hr 06/21/21 22:07: POC Glucose 152 H 06/22/21 03:55: WBC 8.9, RBC 3.94 L, Hgb 12.2 L, Hct 36.7 L, MCV 93.1, MCH 31.0, MCHC 33.2, RDW Std Deviation 41.4, RDW Coeff of Colt 12.0, Plt Count 201, MPV 9.1, Immature Gran % (Auto) 0.200, Neut % (Auto) 74.1 H, Lymph % (Auto) 15.8 L, [place] % (Auto) 7.9, Eos % (Auto) 1.7, Baso % (Auto) 0.3, Absolute Neuts (auto) 6.6, Absolute Lymphs (auto) 1.40, Nucleated RBC % 0 06/22/21 03:55: Sodium 135 L, Potassium 3.7, Chloride 104, Carbon Dioxide 24.0, Anion Gap 7, BUN 13, Creatinine 0.90, Estim Creat Clear Calc 74.19, Est GFR (MDR D) Af Amer 107, Est GFR (MDRD) Non-Af 89, BUN/Creatinine Ratio 14.5, Glucose 165 H, Calcium 8.2 L 06/22/21 03:55: Triglycerides 200 H, Cholesterol 148, LDL Cholesterol 79, VLDL Cholesterol 40, HDL Cholesterol 29 L 06/22/21 03:55: Hemoglobin A1c 7.1 H 06/22/21 11:50: POC Glucose 147 H Radiography Diagnostic Testing: Radiology Impression Echocardiogram 06/21/21 15:35 Interpretation Summary The estimated ejection fraction is 55-60 %. Mild inferior Hypokinesia Ordering Physician: Juana Parson Referring Physician: Sreedhar Leroy Performed By: Ashley Newton, WANDA, RVT Physical Exam Const alert, oriented x3 and no apparent distress Constitutional Narrative: Overweight older white male lying in bed, appears comfortable, nontoxic, very pleasant Exam Limitations: no limitations Nutritional Appearance: overweight HEENT head/scalp atraumatic and moist oral mucous membranes Head and Scalp: normocephalic Resp normal respiratory effort, no retractions, no use of accessory muscles and clear to auscultation bilaterally Auscultation: Negative for crackles, rales, rhonchi or wheezes Cardio regular rate, regular rhythm, S1 normal heart sound, S2 normal heart sound, no murmurs, no rub, no gallops, no clicks and no JVD GI normal to inspection, nondistended, normoactive bowel sounds, soft to palpation, non-tender and non-distended Extremity no clubbing, cyanosis or edema Extremity Narrative: Right radial cath site has bandage in place without any bleeding noted, mildly tender Peripheral Pulses: Yes pulses 2+ throughout Neuro oriented x3, moves all extremities and no focal motor deficits Sensorium / Orientation: awake and alert Speech: speech normal Assessment & Plan Assessment/Plan (1) STEMI (ST elevation myocardial infarction): QUALIFIERS: Involved coronary artery: right coronary artery Qualified Code(s): I21.11 - ST elevation (STEMI) myocardial infarction involving right coronary artery PLAN: STEMI -PCI 06/21/2021 with EARL x2 to RCA -On cath patient was noted to have moderate diffuse disease of his circumflex and OM1 as well as a subtotal acute marginal branch with diffuse disease -Medical treatment opted for at this time and outpatient stress test has been recommended after follow-up -Continue Brilinta, aspirin, MERLYN, carvedilol, and atorvastatin -Cardiac rehab referral made -No significant ectopy or arrhythmia noted since intervention -Patient has fairly good control of his diabetes with a hemoglobin A1c of 7.1 -Lipids are overall unimpressive with a total cholesterol of 148, LDL 79, HDL 29 -Cardiology following -Probable discharge 06/23/2021 DM-2 -Overall control is fairly good -Globin A1c on admission was 7.1 -Continue diet control and Metformin upon discharge -SSI with Accu-Cheks while admitted History of tobacco abuse -Remote DVT prophylaxis -Ambulation protocol Charges/Coding Visit Charges Inpatient E&M: 06840 Subs Hosp L2
[2021-06-22 17:16] LABS: Bedside Glucose 165 mg/dL (70-110)
[2021-06-22] MEDS: Atorvastatin Calcium 40 MG Tablet PO (22:44)
[2021-06-22 23:11] LABS: Bedside Glucose 179 mg/dL (70-110)
--- NOTE | 2021-06-23 01:30 | PCS.PANDOC ---
PANDEMIC DOCUMENTATION INITIATED: Date: 03/27/2021 Time: 190
[2021-06-23 03:00] VITALS: PULSE 59
[2021-06-23 04:39] VITALS: BP 98/54; PULSE 60; RESP 16; TEMP 37.1; O2SAT 96
[2021-06-23] MEDS: Insulin Lispro 100 UNIT/ML INSULN.PEN SC ×2 (06:18→11:20)
[2021-06-23 06:51] LABS: Bedside Glucose 173 mg/dL (70-110)
[2021-06-23 06:54] LABS: Hematocrit 35.5 % (40-54); Hemoglobin 12.1 g/dL (13.0-16.5); Mean Corp Hgb Conc 34.1 g/dL (32-36); Mean Corpuscular Hgb 30.9 pg (27.0-32.0); Mean Corpuscular Volume 90.8 fL (80-94); Mean Platelet Vol. 9.3 fl (6.2-12.0); Platelet Count 193 K/mm3 (150-450); RBC Distribution Width CV 12.3 % (11.6-14.6); RBC Distribution Width SD 40.5 fl (35.1-43.9); Red Blood Count 3.91 M/mm3 (4.6-6.2); White Blood Count 7.5 K/mm3 (4.4-11.0)
[2021-06-23 06:57] VITALS: O2SAT 95
[2021-06-23 07:01] VITALS: PULSE 74
[2021-06-23 09:57] VITALS: BP 107/72; PULSE 66; RESP 14; TEMP 36.9; O2SAT 96
[2021-06-23] MEDS: Carvedilol 3.125 MG TABLET PO (10:01)
[2021-06-23] MEDS: TICAGRELOR 90 MG TABLET PO (10:01)
[2021-06-23] MEDS: OFLOXACIN 0.3% 1 DRP OTIC ×2 (10:02→14:08)
--- NOTE | 2021-06-23 10:14 | PN.CARD_ITS ---
Documented by User: ANABELLA Beyer 06/23/21 10:16 Subjective Subjective Pt is doing better today, no chest pain. Objective Data Vital Signs: Vital Signs Temp Pulse Resp BP Pulse Ox 98.5 F 66 14 107/72 96 06/23/21 09:57 06/23/21 09:57 06/23/21 09:57 06/23/21 09:57 06/23/21 09:57 Oxygen Delivery Method Room Air Weight: 183 lb 10.321 oz Body Mass Index (BMI) 27.8 Intake & Output: Intake and Output for Last 24 Hours 06/21/21 06/22/21 06/23/21 23:59 23:59 23:59 Intake Total 1247.88 / 1397.88 990 / 990 Output Total 450 / 925 1595 / 1595 Balance 797.88 / 472.88 -605 / -605 Lab / Micro Data Result Diagrams: 06/23/21 06:40 06/22/21 03:55 Labs: Laboratory Results - last 24 hr 06/22/21 11:50: POC Glucose 147 H 06/22/21 17:09: POC Glucose 165 H 06/22/21 22:50: POC Glucose 179 H 06/23/21 06:15: POC Glucose 173 H 06/23/21 06:40: WBC 7.5, RBC 3.91 L, Hgb 12.1 L, Hct 35.5 L, MCV 90.8, MCH 30.9, MCHC 34.1, RDW Std Deviation 40.5, RDW Coeff of Colt 12.3, Plt Count 193, MPV 9.3 Cardiology Labs/Tests 06/23/21 06:40: WBC 7.5, RBC 3.91 L, Hgb 12.1 L, Hct 35.5 L, MCV 90.8, MCH 30.9, MCHC 34.1, Plt Count 193, MPV 9.3 Rhythm: SR Radiography Diagnostic Testing: Radiology Impression Echocardiogram 06/21/21 15:35 Interpretation Summary The estimated ejection fraction is 55-60 %. Mild inferior Hypokinesia Ordering Physician: Juana Parson Referring Physician: Sreedhar Leroy Performed By: Ashley Newton, RDCS, RVT Physical Exam Const alert and oriented x3 HEENT normocephalic and head/scalp atraumatic Eyes PERRL, EOMs intact bilaterally, conjunctivae normal and no scleral icterus Neck supple General: trachea midline Resp normal respiratory effort, normal air movement and clear to auscultation bilaterally Cardio regular rate, regular rhythm, S1 normal heart sound, S2 normal heart sound and peripheral pulses 2+ throughout GI normal to inspection, nondistended, normoactive bowel sounds and soft to palpation Extremity normal capillary refill and no clubbing, cyanosis or edema General Extremity: no tenderness to palpation of joints or extremities Skin General Skin Exam: turgor normal Lesions: no lesions Rashes: no rashes Neuro oriented x3, moves all extremities, no focal motor deficits and no sensory deficits noted Psych thought process normal and affect normal Appearance: appropriate Assessment & Plan Assessment/Plan (1) STEMI (ST elevation myocardial infarction): QUALIFIERS: Involved coronary artery: right coronary artery Qualified Code(s): I21.11 - ST elevation (STEMI) myocardial infarction involving right coronary artery (2) Atherosclerotic heart disease of [place] coronary artery without angina pectoris: (3) Diabetes mellitus: QUALIFIERS: Diabetes mellitus complication detail: with cataract Diabetes mellitus complication status: with ophthalmic complications Diabetes mellitus intermediate project manager insulin use: without intermediate project manager use Diabetes mellitus type: type 2 Qualified Code(s): E11.36 - Type 2 diabetes mellitus with diabetic cataract PLAN: * Pt had stenting to his RCA. He does have moderated diffuse disease of his Cx, OM1. He also has a subtotal acute marginal branch with diffuse disease, these were opted to be treated medically at this time. * He was started on Brilinta, (this will need to be continued for at least one year ) , ASA, Lisinopril, Carvedilol, and Atorvastatin. * plan would be to refer to cardiac rehab on OP basis * Plan to obtain stress test after f/u appt for evaluation of Cx and OM1. * follow up in a few weeks in the office Charges/Coding Visit Charges Inpatient E&M: 24890 Subs Hosp L3 Documented by User: Dr. Juana Parson MD 07/05/21 12:56 Lab / Micro Data Result Diagrams: 06/23/21 06:40 06/22/21 03:55
[2021-06-23 11:20] LABS: Bedside Glucose 197 mg/dL (70-110)
--- NOTE | 2021-06-23 12:19 | DS.PCM_ITS ---
Providers Date of Admission: 06/21/21 Primary Care Physician: Dr. Sreedhar Leroy, Consultations 06/21/21 17:52 Consult: Ophthamology Routine Consulting Provider: Herman Kamara Reason for Consult: cataract surgery same day as admission EMERGENT Consult: No MD Notified: Yes Date Notified: 06/21/21 Time Notified: 17:52 Method of Notification: Verbal Reason For Visit: STEMI Diagnosis Discharge Diagnosis (1) STEMI (ST elevation myocardial infarction): Status: Acute Code(s): I21.3 - ST elevation (STEMI) myocardial infarction of unspecified site Qualifiers: Involved coronary artery: right coronary artery Qualified Code(s): I21.11 - ST elevation (STEMI) myocardial infarction involving right coronary a rtery (2) Atherosclerotic heart disease of [place] coronary artery without angina pectoris: Status: Acute Code(s): I25.10 - Atherosclerotic heart disease of [place] coronary artery without angina pectoris (3) Diabetes mellitus: Status: Deleted Code(s): E11.9 - Type 2 diabetes mellitus without complications Qualifiers: Diabetes mellitus type: type 2 Diabetes mellitus group home insulin use: without group home use Diabetes mellitus complication status: with ophthalmic complications Diabetes mellitus complication detail: with cataract Qualified Code(s): E11.36 - Type 2 diabetes mellitus with diabetic cataract Medications at Discharge Home Medications cephalexin 500 mg PO Q6 #40 capsule 11/05/20 metformin 1,000 mg PO BIDCM #60 tablet 11/05/20 bromfenac 1 drp RIGHT EYE QHS 06/21/21 ofloxacin 1 drp RIGHT EYE 4X/DAY 06/21/21 aspirin [Lo-Dose Aspirin] 81 mg PO DAILY #30 tab 06/23/21 atorvastatin 40 mg PO QHS #30 tab 06/23/21 carvedilol 3.125 mg PO BID #60 tab 06/23/21 lisinopril 5 mg PO DAILY #30 tab 06/23/21 ticagrelor [Brilinta] 90 mg PO BID #60 tab 06/23/21 Hospital Course Operations None Procedures 2-D Echocardiogram and Cardiac catheterization Summary of Care Provided Minutes Spent on Discharge: 41 Hospital Course: Mr. Mason is a 71-year-old white male who presented to the emergency department [facility] on 06/21/2021 with a chief complaint of chest pain and left arm pain. He is a past medical history of diabetes but no other medical history. He had cataract surgery on the morning of admission and went to breakfast but stated his food did not taste white so he went home. After arriving home he began to have left arm and chest pain. As the patient was being hooked up to the monitor in the emergency department it was noted that there was some evidence of ST elevation in lead II. A 12-lead EKG was performed and showed ST elevation in leads II, III, aVF and V6. He also had Q waves inferiorly. A STEMI team was called at that point and he was given aspirin, heparin, and Brilinta. The leather sprayer came to the room and the patient was taken to the Advertising [facility]. In the [facility] he was found to have complete occlusion of his RCA and 2 drug-eluting stents were placed at that time. He was also noted to have moderate diffuse disease of the circumflex, OM1, and subtotal acute marginal branch occlusion that cardiology opted to treat medically at this time. He was placed on Brilinta, aspirin, lisinopril, carvedilol, and atorvastatin. He was seen by cardiac rehab during his hospitalization and will be followed up as an outpatient with this. They would like to obtain a stress test after discharge follow-up with the cardiology office for further evaluation of the circumflex and OM1. An echocardiogram was performed on 06/21/2021 and showed an EF of 55 to 60% with mild inferior hypokinesis. Lipids were obtained during his hospitalization and showed a triglyceride of 200, total cholesterol 148, and LDL of 79, a VLDL of 40, and a HDL of 29. His hemoglobin A1c was assessed for control of his diabetes and was found to be 7.1. Upon discharge prescriptions were written for Brilinta, lisinopril, carvedilol, and atorvastatin and he was instructed to get over-the-c ounter baby aspirin to take daily. We discussed the importance of continued dual antiplatelet therapy for at least a year. We also discussed the importance of continued blood sugar control which as noted above appears to be fairly well-controlled at this point on his metformin twice daily. He is to follow-up with his primary care physician in 2 weeks and will be called by cardiology for follow-up soon as an outpatient from them. He was discharged home on 06/23/2021 in stable condition. Discharge diagnoses: STEMI DM-2 Remote history of tobacco abuse Physical Exam Const alert, oriented x3 and no apparent distress Constitutional Narrative: Overweight older white male sitting up in bed, appears comfortable, nontoxic, very pleasant General Appearance: cooperative, comfortable, well kempt and well developed Orientation / Consciousness: awake Exam Limitations: no limitations Nutritional Appearance: overweight HEENT normocephalic, head/scalp atraumatic, hearing grossly normal bilaterally and moist oral mucous membranes Eyes PERRL, EOMs intact bilaterally and conjunctivae normal Eyes Narrative: No scleral icterus Neck no lymphadenopathy, supple and no JVD Neck Narrative: Trachea midline, no thrush, Mallampati 2 Resp normal respiratory effort, no retractions, no use of accessory muscles and clear to auscultation bilaterally Auscultation: Negative for crackles, rales, rhonchi or wheezes Cardio regular rate, regular rhythm, S1 normal heart sound, S2 normal heart sound, no murmurs, no rub, no gallops, no clicks and no JVD GI normal to inspection, nondistended, normoactive bowel sounds, soft to palpation, non-tender and non-distended Extremity normal to inspection and no clubbing, cyanosis or edema Skin no rashes or lesions noted, no wounds, skin turgor normal and no jaundice Neuro oriented x3, CN's II-XII intact bilaterally, moves all extremities and no focal motor deficits Sensorium / Orientation: awake, alert, oriented to person, oriented to place and oriented to time Speech: speech normal Psych Psych Narrative: Affect is a bit flat today Mood & Affect: depressed Weight / BMI Weight Weight: 83.3 kg Body Mass Index (BMI) 27.8 ABG / Lab / Microbiology Data Result Diagrams: 06/23/21 06:40 06/22/21 03:55 Laboratory: Laboratory Results - last 24 hr 06/22/21 17:09: POC Glucose 165 H 06/22/21 22:50: POC Glucose 179 H 06/23/21 06:15: POC Glucose 173 H 06/23/21 06:40: WBC 7.5, RBC 3.91 L, Hgb 12.1 L, Hct 35.5 L, MCV 90.8, MCH 30.9, MCHC 34.1, RDW Std Deviation 40.5, RDW Coeff of Colt 12.3, Plt Count 193, MPV 9.3 06/23/21 11:06: POC Glucose 197 H Radiography Diagnostic Testing: Radiology Impression Echocardiogram 06/21/21 15:35 Interpretation Summary The estimated ejection fraction is 55-60 %. Mild inferior Hypokinesia Ordering Physician: Juana Parson Referring Physician: Sreedhar Leroy Performed By: Ashley Newton RDCS, RVT D/C Instructions Discharge Diet: Low fat / Low cholesterol and 1800 Calorie Control Diet Discharge Activity: Return to Normal Activity Return to work on: 06/26/21 Meaningful Use Info Meaningful Use Diagnoses (Choose all that apply): AMI AMI/Post PCI/Angioplasty Aspirin given w/in 24hrs of arrival?: Yes ASA at discharge?: Yes Antiplatelet Therapy at Discharge:: Yes Statins at discharge?: Yes Pete/ARB at discharge?: Yes Beta Julito at discharge?: Yes Done w/ Acute MO measure.: Yes Documented LVEF (%): 55 Discharge Plan Admission Admit Date/Time: 06/21/21 15:55 Primary Reason for Your Visit: Myocardial infarction Attending Provider: Lo Randall Primary Care Provider: Sreedhar Leroy Consulting Providers: Sreedhar Gutierrez ; Herman Kamara Discharge Orders/Prescriptions Prescriptions: New atorvastatin 40 mg Tablet 40 mg PO QHS Qty: 30 RF: 0 carvedilol 3.125 mg Tablet 3.125 mg PO BID Qty: 60 RF: 0 lisinopril 5 mg Tablet 5 mg PO DAILY Qty: 30 RF: 0 Brilinta 90 mg Tablet 90 mg PO BID Qty: 60 RF: 0 aspirin [Lo-Dose Aspirin] 81 mg tablet,delayed release (DR/EC) 81 mg PO DAILY Qty: 30 RF: 0 Continued cephalexin 500 MG capsule 500 mg PO Q6 Qty: 40 RF: 0 metformin 1,000 MG tablet 1,000 mg PO BIDCM Qty: 60 RF: 0 ofloxacin 0.3 % drops 1 drp RIGHT EYE 4X/DAY RF: 0 bromfenac 1 drp RIGHT EYE QHS RF: 0 Referrals / Follow Up: Sreedhar Leroy DO [Primary Care Provider] - Within 2 Weeks Romina Stoddard, PA [PHYSICIAN PSYCHOLOGY PHYSICIAN] - See Referral Note (You will be called for appointment set up) Disposition Disposition (needs filled in before D/C Order can be placed): Home, Self Care Charges/Coding Visit Charges Inpatient E&M: 70903 Disch Hosp
--- NOTE | 2021-06-23 14:13 | CASEMGMT ---
Pt to be sent home on Brilinta and med e-scribed to [facility]. Call to [facility] and per tech, pt's co-pay is $40. Pt already provided with Brilinta savings card. Pt updated on all, voices understanding and voices no further questions/concerns/needs. Napoleon BLUM CM
== END 2021-06-23 14:56 | disposition home or self-care (01) | DRG 247 ==
LOC: ED 13:22 → ICU 15:16 → PCU 06-22 16:53
PROVIDERS: Internal Medicine; Admitting Provider Internal Medicine Interventional Cardiology; Emergency Provider Emergency Medicine; PCP Family Medicine; Referring Provider Internal Medicine Interventional Cardiology; Visit Provider Internal Medicine
DX: I21.11 ST elevation (STEMI) myocardial infarction involving right coronary artery (principal); I25.10 Atherosclerotic heart disease of native coronary artery without angina pectoris; E11.36 Type 2 diabetes mellitus with diabetic cataract; Z79.84 Long term (current) use of oral hypoglycemic drugs; Z79.02 Long term (current) use of antithrombotics/antiplatelets; Z79.82 Long term (current) use of aspirin; Z79.899 Other long term (current) drug therapy; Z87.891 Personal history of nicotine dependence
CPT/HCPCS: 36415; 71045; 80048; 80061; 82962; 83036; 84484; 85025; 85027; 85610; 85730; 92941; 93005; 93306; 93458; 94762; 97802; 99285; C1874; J7030; Q9957; Q9967; A4216; C1725; C1769; C1887; C1894; C8929; C9606; J1327; J3490

== ENCOUNTER → 2021-06-27 08:11 | Outpatient (CLI) | payer MEDICARE, SELFPAY ==
--- NOTE | 2021-06-27 08:17 | CR.HP_ITS ---
CR - History & Physical - General Arrival date:: 06/27/21 Arrival time:: 08:15 - long line at registration, so a little late. Date of Referral:: 06/22/21 Date of CR Evaluation:: 06/27/21 Referring Physician: Dr. Hector Florence Primary Diagnosis: STEMI, PCI w/coronary stenting - History of Present Cardiac Event Onset Date: Enter Onset Date of cardiac illnesses in Comment field below Acute Myocardial Infarction within 12 months:: Yes - ST seg. elevated myocardial infarction (STEMI) PTCA or coronary stenting:: Yes - Emergent PCI w/coronary stenting Heart Failure EF <35%:: No Type of Symptoms:: chest pain (tight) left arm pain (uncomfortable) following cataract surgery prior that morning. Interventions with present event:: emergent heart cath procedure angioplasty implant and graft Were there any complications?: None - Sleep Disorder Evaluation Hx of Sleep Apnea: No Do you snore loudly (louder than talking or can be heard through closed doors)?: Yes Do you often feel tired/ fatigued/ sleepy during daytime?: No Has anyone observed you stop breathing during sleep?: No History of Hypertension (for STOP score): No STOP Results: Negative - Medications Home Medications: Ambulatory Orders Medication Instructions Recorded cephalexin 500 mg PO Q6 #40 capsule 11/05/20 metformin 1,000 mg PO BIDCM #60 tablet 11/05/20 bromfenac 1 drp RIGHT EYE QHS 06/21/21 ofloxacin 1 drp RIGHT EYE 4X/DAY 06/21/21 aspirin [Lo-Dose Aspirin] 81 mg PO DAILY #30 tab 06/23/21 atorvastatin 40 mg PO QHS #30 tab 06/23/21 carvedilol 3.125 mg PO BID #60 tab 06/23/21 lisinopril 5 mg PO DAILY #30 tab 06/23/21 ticagrelor [Brilinta] 90 mg PO BID #60 tab 06/23/21 - Allergies Allergies/Adverse Reactions: Allergies No Known Allergies Allergy (Verified 06/21/21 13:12) Advanced Directives - Advanced Directives Power of Box Maker Wood: Yes Living Will: Yes Advance Directives Information Provided: No Advance Directives on File: No DNR Order?:: No - MOLST See MOLST form: No Past Medical History - Covid-19 Screening Fever: No Unexplained muscle aches: No Current respiratory symptoms: No Upper respiratory infections symptoms: No Gastro-intestinal symptoms: No Qby-Jaqs-Sznuka symptoms: No Has tested positive for COVID-19 in last 30 days: No Date of testin10/27/20 - Had the COVID-19 vacccine but not the booster. Had contact w/person w/symptoms or Covid-19 (+) last 14 days: No Has High Risk Exposures ID'd by Health dept/Inf Control team: No 65 years or older:: Yes Lives in Assisted Living facility:: No Has a chronic lung disease or moderate to severe asthma:: No Has a serious heart condition:: No Immunocompromised:: No Severely obese (Body Mass Index of 40 or higher):: No Diabetic:: Yes Has chronic kidney disease undergoing dialysis:: No Has liver disease:: No - Past Medical Illness Medical History: Past Medical History (Last Updated 06/22/21 @ 09:08 by Romina Jason) Atherosclerotic heart disease of [place] coronary artery without angina pectoris I25.10 ST elevation myocardial infarction (STEMI) I21.3 Type 2 diabetes mellitus E11.9 - Past Surgical History Surgical History: Past Surgical History (Last Updated 06/22/21 @ 09:09 by Romina Jason) Hx of cataract surgery Z98.49 Presence of coronary angioplasty implant and graft Onset Date: ~06/21/21 Z95.5 Successful PCI/percutaneous coronary intervention of the culprit lesion/occluded distal RCA with SYLVIA 0 flow With predilatation and placement of drug-eluting stent 3 x 40 mm/Orsiro overlap with 3.5 x 22 mm, drug- eluting stent/Orsiro, postdilated with 3.5 x 20 mm NC/emerge MR balloon per cardiac cath 06/22/21 Dr. Parson Presence of stent in coronary artery Onset Date: ~06/21/21 Z95.5 Successful PCI/percutaneous coronary intervention of the culprit lesion/occluded distal RCA with SYLVIA 0 flow With predilatation and placement of drug-eluting stent 3 x 40 mm/Orsiro overlap with 3.5 x 22 mm, drug- eluting stent/Orsiro, postdilated with 3.5 x 20 mm NC/emerge MR balloon. per cardiac cath 06/21/21 Dr. 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 Left click = Reports ([place]) Review of Present Symptoms: Reports: Fatigue - not anything differnet than previously, Sleep - Normal. Denies: Shortness of Breath at Rest, Shortness of Breath with Exertion, Angina, Dizziness/Lightheadedness, Heart Arrhythmia/Irr egularities, Appetite - Normal - I have lost my appetite, still eat but not aas much as before., Appetite - Special Diet, Sexual Changes - Pain Is Patient Pain Free?: Yes Pain Location: none Pain Level: 0/10 Risk Factor Assessment - Chief Complaint Chief Complaint: 71 yr old male patient of Dr. Florence's presentst o cardiac rehab today follwoing recent STEMI nad emergent heart cath with angioplasty implant & graft. Patient stated he had catarct surgery in the morning of his heart attack. He later developed chest pain and left arm pain and came to the emergency room. - Vital Signs Temperature: 98.5 F Respiratory Rate: 14 Pulse Ox: 98 Blood Pressure: 107/72 - Pulse Pulse Rate: 66 Pulse Rhythm: Regular - Hypertension Blood Pressure Sitting - Left Arm: 107/72 - Blood Cholesterol/Lipids Total Cholesterol (mg/dL) Goal = less than 200 mg/dL: 148 - 06/22/2021 HDL Cholesterol (mg/dL) Goal = less than 40 mg/dL: 29 LDL Cholesterol (mg/dL) Goal = less than 70 mg/dL: 79 Triglycerides (mg/dL) Goal = less than 150 mg/dL: 200 - Diabetes Diabetic History: Type II, Medication Dependent - Obesity Height: 5 ft 9 in Weight:: 183 lb Weight in Pounds: 183.0 lbs Weight Source: Standing Scale Body Mass Index (BMI): 27.0 Nutritional Referral for Obesity: No - Physical Inactivity Physical Inactivity: Reg Exercise 30 min/day, Recreational activity - Risk Stratification Risk Guidelines: Lowest Risk: Risk Factor for Smoking - Former smoker, Risk Factor for Dyslipidemia, Risk Factor for Obesity - BMI 27.0, Risk Factor for Hypertension - 107/72, Risk Factor for Sedentary Lifestyle, Risk Factor for Depression, Moderate Risk: Risk Factor for Diabetes - Glucose 165, A1c 7.1% Motivation - Motivation to Participate On a scale of 1 to 10, how prepared are you to commit to attending program?: 6 What do you see as barriers to successfully being able to complete the program?: don't know. NOt a fan of controlled exercise, rather be out on my own. What do you see as the benefits of succesfully completing the program? In other words, what do you hope to get out of participating in the program?: improve my health Are there issues you are dealing with that will interfere with completing the program?: none Do you have a spouse or signficant other, family or friends who will help s upport you to complete the program?: yes.
--- NOTE | 2021-06-27 08:17 | CR.ITP_ITS ---
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 Personal Learning Style:: Audio/Visual, Written Barriers to Learning: Vision Impairment Stage of change r/t lifestyle modifications:: Action Gave educational material for:: Treating Heart Disease, Emotions & Heart Diseas e, Stress Management & Relaxation, Sleep Disorders & Heart Disease, How The Heart Works, What it means to have Heart Disease, How Coronary Artery Disease is Diagnosed, Heart Procedures, What Heart Medications Do, Risk Factors & Modifications, Living an Active Life, Nutrition - Education/Goals Individual Counseling: Initial Assessment: Abnormal Cholesterol Levels, High Blood Pressure, Diabetes, A. Fasting Blood Sugar >100 - 165, Hb A1c 7.1%, C. High Triglycerides >150 - 200, Low HDL <40/Males or <50/Females - 29 Cardiac Rehabilitation Goals: 1. Maintain the individual as the primary focus of care. 2. To improve the patient's quality of life. 3. Identification of cardiac risk factors and provide cardiac risk factor management. 4. Enhance the psychosocial status of the patient. 5. Reconditioning enough to allow the patient to resume customary activities. 6. Control symptoms of cardiac disease Personal Goals: Initial Assessment: Improve energy level, Get back to work, or to resume activities faster, Improve muscle strength and endurance, Control risk factors (learn risk factor modification) Scale for measuring improvement of personal goals: Enter appropriate number in Comments. 2 = Unchanged. 3 = Slightly Better. 4 = Moderate Improvement. 5 = Met my Goal - Diagnosis & Disease Process Outcomes/Goals: Pt IDs own risk factors & lifestyle modifications by Session 10, Verbalizes symptoms of angina & response by session 3., Pt independently manages Plan/Interventions: Assist Pt to ID & engage in lifestyle modification to reduce CVD risk, Instruct on individual risk factors, Review symptoms of angina & emergency actions, Review secondary diagnosis & identify educational needs. - Safety Referral to Physical Therapy: No Referral to [facility] Case Management: No Fall Risk Assessed:: Yes Assistive Devices:: None Exercise - Initial Assessment - Visit Date of Eval: 06/27/21 Session #:: 0 - pre-cardiac rehab evaluation Mets: Pre-: >5 METS for 30 minutes by discharge - Physician Prescribed Exercise Modalities: Treadmill, Rower, Airdyne, NuStep Frequency: 3x/week for 12 weeks [36 sessions] Intensity: 60-80% of age predicted maximum heart rate reserve Current METSs:: 3.0 Target Heart Rate:: 96-125 Resting Blood Pressure: 107/72 EKG Type: Normanl Sinus Rhythm - Outcomes & Goals Goals:: Verbalizes understanding of THR, RPE & goal METS by session 6, Documents in home exercise log/reports 30 min aerobic 5 day/wk by DC, Demonstrates accurate pulse taking by DC - Intervention & Plan Exercise Program Goals: Instruct on personal THR & RPE, Instruct on MET level & personal MET goal, Instruct on home exercise - Physical Activity Home Exercise Physical Activity - Home Exercise: Safe Exercise, Warm-up, Self-monitoring, Cool-Down, Home Exercise > 30 min Daily, Sitting Time <3 hours/daily - Outcomes & Goals Outcomes/Goals: Demonstrates correct Warm-up/exercise Cool-Down (S3) if = 2.5 METs, Verbalizes symptoms of exercise intolerance by Session 3 (S3), Demonstrate safe equipment use (S3) & follows exercise prescrition (6) - Intervention & Plan Plan/Intervention: Instruct warm-up & cool-down if exercising at > 2 METs, Instruct on symptoms of exercise intolerance & actions to take, Instruct & monitor on saf, Assess intial functional capacity & safety risk Nutrition - Initial Assessment - Program Goals Nutrition Program Goals: LDL <100 optimal. 100 - 129 Near optimal. 130 - 159 Borderline High. 160 - 189 High. Total Cholesterol <200 desirable. 200 - 239 Borderline High. >/= 240 High. HDL < 40 Low >/=60 High. Triglycerides <150 desirable. <199 optimal. VlDL 5 - 40. HgbA1C <7%. BMI <25 Patient has diagnosis of Hyperlipidemia (ICD E78)?: Yes - Visit Date of Assessment:: 06/27/21 Session #:: 0 - pre-cardiac rehab evaluation - Cholesterol/Lipids Triglycerides (mg/dL): 200 - 06/22/2021 Total Cholesterol (mg/dL): 148 LDL Cholesterol (mg/dL): 79 HDL Cholesterol (mg/dL): 29 Determine presence & major risk factors that modify LDL goal: Hypertension or hypertensive medication, Low HDL cholesterol <40 mg/dL*, Family history of premature CHD in Male < 55 years: female <65 yearsFa, Age men > 45 years; women >/= 55 years Outcomes/Goals: Pt IDs own risk factors & lifestyle modifications by Session 10, Verbalizes symptoms of angina & response by session 3., Pt independently manages Intervention/Plan: Instruct on personal lipid levels & lipid goals/NCEP guidelines, Instruct on cholesterol Referral to dietitian:: Yes - Medical Nutrition Therapy - Diabetes (Other Core Measures) Diabetes Type: Diagnosis Type II ICD-10 E11 Fasting blood glucose:: 165 Hgb A1C (4.2 - 6.3): 7.1 Insulin dependent injection/pump?: No Non-Insulin Dependent?: Yes - Metformin Do you monitor your blood sugar at home?: No Referral to Diabetic Clinic:: Yes - Initial DSMNT & MNT Outcomes/Goals:: Able to state symptoms of, Able to state, Able to state Intervention/Plan:: Instruct on, Refer to, Instruct on - Weight Mgt (Other Care) Not Applicable: Yes Height: 5 ft 9 in Weight:: 183 lb BMI: 27.0 Diagnosis Overweight/Obesity BMI> 30% ICD-10 E66: No Diagnosis High BMI/Morbid Obesity BMI> 35% ICD-10 Z68: No Outcomes/Goals: Pt sets, maintains & shows weight loss goal & trend during rehab Intervention/Plan: Instruct on ideal BMI & set weight loss goal w/patient - Healthy Eating Habits Will attend diet classes:: Yes Outcomes/Goals:: Consume diet rich in vegs,fruits,whole grain/high fiber,fish,lean meat, Limit sat/trans fats,cholesterol & added salts & sugars Intervention/Plan:: Assess current eating habits - Education Gave educational materials for:: Signs & symptoms of hypoglycemia, Signs & symptoms of hyperglycemia, Relate diabetes to coronary artery disease, Healthy eating Nutrition - 30-Day Assessment Nutrition - 60-Day Assessment Nutrition - 90-Day Assessment Nutrition - Final Assessment Medical - Initial Assessment - Visit Date of Eval: 06/27/21 Session #:: 0 - pre-cardiac rehab evaluation - Medication Compliance Preventative Medication(s):: Aspirin, Ticagrelor/P2Y12 inhibitor, Statin/lipid, Beta sujit H/O mental health issues: depression, anxiety, or addiction?: No Doesn?t believe in the benefits of treatment?: No Believes medications are unnecessary or harmful?: No Has a concern about medication side effects?: No Expresses concern over the cost of medications?: No Outcomes/Goals: Verbalizes medications,desired effect & common side effects @ DC, Pt self-reports following medication regimen, Keeps card in wallet w/medic ations listed by DC Interventions/plans: Instruct on medication effects & side effects, Review medication list w/patient every two weeks, Instruct importance of taking meds as ordered & assist problem solving - Tobacco Use Tobacco Use: Non-smoker - Hypertension Resting Blood Pressure:: 107/72 [place] [employer] Hypertension Guidelines: [place] [employer] Hypertension Guidelines. Normal BP Less than 120/80. Elevated BP 120/80. Hypertension Stage 1: BP 130-139/80-89. Hypertesnion Stage 2: BP 140 or higher/90 or higher. Hypertension Crisis: BP higher than 180/120 Outcomes/Goals: Able to verbalize/achieve optimal blood pressure <130/80, Incorporates diet changes & exercise for blood pressure control by DC Interventions/plan: Instruct on optimal blood pressure, hypertension & medications, Instruct on effects of sodium, alcohol, stress, exercise &hypertension - Tobacco Cessation Referral Smoking Cessation Referral:: No Individual Education/Counseling:: No Education Schedule Given:: Yes Medical- 30-Day Assessment Medical- 60-Day Assessment Medical- 90-Day Assessment Medical - Final Assessment Psychosocial - Initial Assess - VIsit Date of Eval: 06/27/21 Session #:: 0 - pre-cardiac rehab evaluation Not Applicable: Yes - History of previous Mental disease:: No - Psychosocial Test Tool Used:: Erendira Abdi QOL Cardiac, PHQ-9 Questionnaire phq-9 Severity: Severity. 1-4 Minimal Depression. 5-9 Mild Depression. 10-14 Moderate Depression. 15-19 Moderately Sever Depression. 20-27 Severe Depression. Rule: - Referral to Behavioral Health PS - Interventions: Yes Attend Stress Management Classes, No Referral to Behavioral Health if PHQ-9 score >9:, No Referral to [facility], No Referral to Physician if PHQ-9 if score is 5-9: - Outcomes/Goals: See list Psychosocial Outcomes/Goals:: ID's personal stressors & 2 strategies to manage stress by discharge - Intervention/Plan: See List Interventions/Plan:: Assess stressors,coping strategies & signs of derpression on admission, Instruct/assist pt to develop coping & personal stress Mgt strategies, Instruct patient to recognize signs & symptoms of depression, Instruct patient to recog Psychosocial - 30-Day Assess Psychosocial - 60-Day Assess Psychosocial - 90-Day Assess Psychosocial - Final Assessmen Patient Health Questionnaire Initial Assessment 1. Little interest or pleasure in doing things: Several days 2. Feeling down, depressed, or hopeless: Not at all 3. Trouble falling or staying asleep, or sleeping too much: Several days 5. Poor appetite or overeating: Not at all 6. Feeling bad about yourself -- or that you are a failure or have let yourself or your family down: Not at all 7. Trouble concentrating on things, such as reading the newspaper or watching television: Not at all 8. Moving or speaking so slowly that other people could have noticed. Or the opposite - being so fidgety or restless that you have been moving around a lot more than usual: Not at all 9. Thoughts that you would be better off , or of hurting yourself in some way: Not at all How difficult have these problems made it for you to do your work, take care of things at home, or get along with other people?: Not difficult at all Total Score: 2 MADELINE-Q SV Test - Statements CAD is a disease of the arteries in the heart: False Examples of risk factors for heart disease: True Angina is chest pain or discomfort: I Don't Know The benefits of resistance training include: True Eating more meat and dairy products: False Anti-platelet medications such as aspirin are important: True The only effective way to manage stress: False An exercise warm-up slowly increases heart rate: True Prepared, processed foods usually have high sodium: True Depression is common after a heart attack: True The statin medications lower cholesterol: True To control blood pressure, lower the amount of sodium: True If someone gets chest discomfort during walking: False Transfats are partially hydrogenated vegetable oils: True Sleep apnea that is not treated increases the risk: False To control cholesterol, one should become a vegetarian: False Someone knows if he/she is exercising at the right level: True Diabetes cannot be prevented with exercise & health eating: True Stress is a large risk for heart attack: True A diet that can help lower blood pressure is rich in: True - Total Score Total Correct Responses: 18 Self-Efficacy Initial Assessment We would like to know how confident you are in doing certain activities. Please select your confidence level for:: Select your confidence level for the following using the scale 1-10 where 1 is not at all confident and 10 is totally confident. Your score is the average of all 6 responses. Fatigue: How confident are you that you can keep the fatigue caused by your disease from interfering with the things you want to do? Select Number: 4 Physical Discomfort or Pain: How confident are you that you can keep the physical discomfort or pain of your disease from interfering with the things you want to do? Select Number: 4 Emotional Distress: How confident are you that you can keep the emotional distress caused by your disease from interfering with the things you want to do? Select Number: 8 Other Symptoms or Health Problems: How confident are you that you can keep other symptoms or health problems from interfering with the things you want to do? Select Number: 8 Different Tasks and Activities: How confident are you that you can do the different tasks and activities needed to manage your health condition so as to reduce your need to see a doctor? Select Number: 6 Medication: How confident are you that you can do things other than just taking medication to reduce how much your illness affects your everyday life? Select Number: 6 Total Score:: 6 Nutrition Survey - Nutrition Survey Initial Have you lost >10 lbs over the past 2 months without trying?: No Are you following a special diet at home for diabetes, low fat, or low salt?: No Are you interested in meeting with a dietitian for help understanding your diet?: No Do you eat less than 3 meals a day?: No Do you eat fatty meats (lara, sausage, ribs, etc), fried foods, desserts, large amounts of salad dressings, margarine, butter, or cheese most days?: Yes Do you have food allergies? [Enter types in comment field]: No Do you eat in restaurants more than 3 times a week?: No Do you season food with salt, seasoning salt, or garlic salt?: No Do you used canned, boxed, frozen meals, or soups, seasoning packets?: Yes Total Score:: 2
[2021-06-27 08:40] VITALS: BP 107/72; BMI 27.0
[2021-06-27 08:54] VITALS: BP 107/72; PULSE 66; RESP 14; TEMP 36.9; O2SAT 98; BMI 27.0
== END ==
PROVIDERS: PCP Family Medicine; Referring Provider Internal Medicine Cardiovascular Disease; Visit Provider Internal Medicine Cardiovascular Disease
DX: I25.10 Atherosclerotic heart disease of native coronary artery without angina pectoris (principal); E11.9 Type 2 diabetes mellitus without complications; I25.2 Old myocardial infarction

== ENCOUNTER 2021-07-10 13:00 | Outpatient (RCR) | payer MEDICARE, SELFPAY ==
[2021-06-27 08:40] VITALS: BMI 27.0
== END 2021-07-11 23:59 ==
LOC: CR 13:00
PROVIDERS: PCP Family Medicine; Referring Provider Internal Medicine Cardiovascular Disease; Visit Provider Internal Medicine Cardiovascular Disease
DX: I25.2 Old myocardial infarction (principal); I25.10 Atherosclerotic heart disease of native coronary artery without angina pectoris; Z95.5 Presence of coronary angioplasty implant and graft
CPT/HCPCS: 93798

== ENCOUNTER 2021-08-09 13:00 | Outpatient (RCR) | payer MEDICARE, SELFPAY ==
[2021-06-27 08:40] VITALS: BMI 27.0
--- NOTE | 2021-07-28 07:11 | CR.ITP_ITS ---
Diagnosis Exercise - 30-day Assessment - Visit Date of Eval: 07/28/21 Session #:: 9 - Physician Prescribed Exercise Modalities: Treadmill, Airdyne, NuStep Frequency: 3x/week for 12 weeks [36 sessions] Intensity: 60-80% of age predicted maximum heart rate reserve Current METSs:: 3.0 Target Heart Rate:: 96-125 Current RPE:: 12 Maximum Excercise HR:: 82 Resting Blood Pressure: 94/60 Maximum Exercise Blood Pressure: 154/76 EKG Type: NSR w/inverted T wave rare PVCs. - Outcomes & Goals Goals:: Verbalizes understanding of THR, RPE & goal METS by session 6, Documents in home exercise log/reports 30 min aerobic 5 day/wk by DC, Demonstrates accurate pulse taking by DC - Intervention & Plan Exercise Program Goals: Instruct on personal THR & RPE, Instruct on MET level & personal MET goal, Show patient to take own pulse /validate performance until accurate, Instruct on home exercise - 30-day Reassessments 30 day Reassessments:: Progressing - Physical Activity Home Exercise Physical Activity - Home Exercise: Safe Exercise, Warm-up, Self-monitoring, Cool-Down, Home Exercise > 30 min Daily, Sitting Time <3 hours/daily - Outcomes & Goals Outcomes/Goals: Demonstrates correct Warm-up/exercise Cool-Down (S3) if = 2.5 METs, Verbalizes symptoms of exercise intolerance by Session 3 (S3), Demonstrate safe equipment use (S3) & follows exercise prescrition (6) - Intervention & Plan Plan/Intervention: Instruct warm-up & cool-down if exercising at > 2 METs, Instruct on symptoms of exercise intolerance & actions to take, Instruct & monitor on saf, Assess intial functional capacity & safety risk - 30-day Reassessments 30 day Reassessments:: Progressing Nutrition - Initial Assessment Nutrition - 30-Day Assessment - Program Goals Nutrition Program Goals: LDL <100 optimal. 100 - 129 Near optimal. 130 - 159 Borderline High. 160 - 189 High. Total Cholesterol <200 desirable. 200 - 239 Borderline High. >/= 240 High. HDL < 40 Low >/=60 High. Triglycerides <150 desirable. <199 optimal. VlDL 5 - 40. HgbA1C <7%. BMI <25 Patient has diagnosis of Hyperlipidemia (ICD E78)?: Yes - Visit Date of Assessment:: 07/28/21 Session #:: 9 - Cholesterol/Lipids Triglycerides (mg/dL): 200 Total Cholesterol (mg/dL): 148 LDL Cholesterol (mg/dL): 79 HDL Cholesterol (mg/dL): 29 Determine presence & major risk factors that modify LDL goal: Hypertension or hypertensive medication, Low HDL cholesterol <40 mg/dL*, Family history of premature CHD in Male < 55 years: female <65 yearsFa, Age men > 45 years; women >/= 55 years Outcomes/Goals: Pt IDs own risk factors & lifestyle modifications by Session 10, Verbalizes symptoms of angina & response by session 3., Pt independently manages Intervention/Plan: Instruct on personal lipid levels & lipid goals/NCEP guidelin es, Instruct on cholesterol Referral to dietitian:: Yes 30-day Reassessments:: Progressing - Diabetes (Other Core Measures) Diabetes Type: Not Applicable - Weight Mgt (Other Care) Not Applicable: Yes Height: 5 ft 9 in Weight:: 184 lb 8 oz BMI: 27.2 Diagnosis Overweight/Obesity BMI> 30% ICD-10 E66: No Diagnosis High BMI/Morbid Obesity BMI> 35% ICD-10 Z68: No Outcomes/Goals: Pt sets, maintains & shows weight loss goal & trend during rehab Intervention/Plan: Instruct on ideal BMI & set weight loss goal w/patient, Assist pt to ID & incorporate diet changes for weight loss by S9 30 day Reassessments:: Progressing - Healthy Eating Habits Will attend diet classes:: Yes Outcomes/Goals:: Consume diet rich in vegs,fruits,whole grain/high fiber,fish,lean meat, Limit sat/trans fats,cholesterol & added salts & sugars Intervention/Plan:: Assess current eating habits 30-day Reassessments:: Progressing - Education Gave educational materials for:: Healthy eating Nutrition - 60-Day Assessment Nutrition - 90-Day Assessment Nutrition - Final Assessment Medical - Initial Assessment Medical- 30-Day Assessment - Visit Date of Eval: 07/28/21 Session #:: 9 - Medication Compliance Preventative Medication(s):: Aspirin, Clopidogrel/P2Y12 inhibit, Statin/lipid, Beta sujit H/O mental health issues: depression, anxiety, or addiction?: No Doesn?t believe in the benefits of treatment?: No Believes medications are unnecessary or harmful?: No Has a concern about medication side effects?: No Expresses concern over the cost of medications?: No Outcomes/Goals: Verbalizes medications,desired effect & common side effects @ DC, Pt self-reports following medication regimen, Keeps card in wallet w/medications listed by DC Interventions/plans: Instruct on medication effects & side effects, Review medication list w/patient every two weeks, Instruct importance of taking meds as ordered & assist problem solving 30-day Reassessments:: Met - Tobacco Use Tobacco Use: Non-smoker - Hypertension Hypertension Diagnosis:: Hypertension ICD-10 I10 Resting Blood Pressure:: 94/60 [place] [employer] Hypertension Guidelines: [place] [employer] Hypertension Guidelines. Normal BP Less than 120/80. Elevated BP 120/80. Hypertension Stage 1: BP 130-139/80-89. Hypertesnion Stage 2: BP 140 or higher/90 or higher. Hypertension Crisis: BP higher than 180/120 Peak Exercise Blood Pressure:: 154/76 Outcomes/Goals: Able to verbalize/achieve optimal blood pressure <130/80, Incorporates diet changes & exercise for blood pressure control by DC Interventions/plan: Instruct on optimal blood pressure, hypertension & medications, Instruct on effects of sodium, alcohol, stress, exercise & hypertension 30 day Reassessments:: Met - Tobacco Cessation Referral Smoking Cessation Referral:: No Individual Education/Counseling:: No Education Schedule Given:: Yes Medical- 60-Day Assessment Medical- 90-Day Assessment Medical - Final Assessment Psychosocial - Initial Assess Psychosocial - 30-Day Assess - VIsit Date of Eval: 07/28/21 Session #:: 9 Not Applicable: Yes History of previous Mental disease:: No - Psychosocial Test Tool Used:: PHQ-9 Questionnaire phq-9 Severity: Severity. 1-4 Minimal Depression. 5-9 Mild Depression. 10-14 Moderate Depression. 15-19 Moderately Sever Depression. 20-27 Severe Depression. Rule: - Referral to Behavioral Health PS - Interventions: Yes Attend Stress Management Classes, No Referral to Behavioral Health if PHQ-9 score >9:, No Referral to [facility], No Referral to Physician if PHQ-9 if score is 5-9: - Outcomes/Goals: See list Psychosocial Outcomes/Goals:: ID's personal stressors & 2 strategies to manage stress by discharge - Intervention/Plan: See List Interventions/Plan:: Assess stressors,coping strategies & signs of derpression on admission, Instruct/assist pt to develop coping & personal stress Mgt strategies, Instruct patient to recognize signs & symptoms of depression, I nstruct patient to recog - 30-day Reassessments: 30 day Reassessments:: Progressing Psychosocial - 60-Day Assess Psychosocial - 90-Day Assess Psychosocial - Final Assessmen Patient Health Questionnaire 30-Day Re-eval Assessment 1. Little interest or pleasure in doing things: Several days 2. Feeling down, depressed, or hopeless: Not at all 3. Trouble falling or staying asleep, or sleeping too much: Several days 4. Feeling tired or having little energy: Not at all 5. Poor appetite or overeating: Not at all 6. Feeling bad about yourself -- or that you are a failure or have let yourself or your family down: Not at all 7. Trouble concentrating on things, such as reading the newspaper or watching television: Not at all 8. Moving or speaking so slowly that other people could have noticed. Or the opposite - being so fidgety or restless that you have been moving around a lot more than usual: Not at all 9. Thoughts that you would be better off , or of hurting yourself in some way: Not at all How difficult have these problems made it for you to do your work, take care of things at home, or get along with other people?: Not difficult at all Total Score: 2 Self-Efficacy 30-Day Re-eval Assessment We would like to know how confident you are in doing certain activities. Please select your confidence level for:: Select your confidence level for the following using the scale 1-10 where 1 is not at all confident and 10 is totally confident. Your score is the average of all 6 responses. Fatigue: How confident are you that you can keep the fatigue caused by your disease from interfering with the things you want to do? Select Number: 6 Physical Discomfort or Pain: How confident are you that you can keep the physical discomfort or pain of your disease from interfering with the things you want to do? Select Number: 7 Emotional Distress: How confident are you that you can keep the emotional distress caused by your disease from interfering with the things you want to do? Select Number: 8 Other Symptoms or Health Problems: How confident are you that you can keep other symptoms or health problems from interfering with the things you want to do? Select Number: 8 Different Tasks and Activities: How confident are you that you can do the different tasks and activities needed to manage your health condition so as to reduce your need to see a doctor? Select Number: 8 Medication: How confident are you that you can do things other than just taking medication to reduce how much your illness affects your everyday life? Select Number: 8 Total Score:: 7 Nutrition Survey
[2021-07-28 07:17] VITALS: BP 154/76; BP 94/60; BMI 27.2
== END 2021-08-11 23:59 ==
LOC: CR 13:00
PROVIDERS: PCP Family Medicine; Referring Provider Internal Medicine Cardiovascular Disease; Visit Provider Internal Medicine Cardiovascular Disease
DX: I25.2 Old myocardial infarction (principal); I25.10 Atherosclerotic heart disease of native coronary artery without angina pectoris; Z95.5 Presence of coronary angioplasty implant and graft
CPT/HCPCS: 93798

== ENCOUNTER → 2022-01-24 | Outpatient (CLI) | payer MEDICARE, SELFPAY ==
[2021-07-28 07:17] VITALS: BMI 27.2
--- NOTE | 2022-01-24 07:54 | ECHOD_ITS ---
Reason For Study: CAD/ASHD Procedure This was a 2D Doppler, Color Flow transthoracic echocardiogram. The study was technically difficult. Exam performed in department. Left Ventricle Normal LV size. Left ventricular systolic function is normal. The estimated ejection fraction is 55 %. No regional wall motion abnormalities noted. Right Ventricle Normal RV size. Normal systolic function. Atria Normal left atrium. Normal right atrium. No doppler evidence for ASD. Mitral Valve There is no mitral annular calcification. Normal mitral valve. Trivial mitral valve insufficiency. Tricuspid Valve Normal tricuspid valve. Trivial tricuspid valve insufficiency. Unable to estimate RV systolic pressure/pulmonary artery pressure due to technically difficult study. Aortic Valve Trisinus/trileaflet aortic valve. Normal aortic valve. Trivial aortic valve insufficiency. Pulmonic Valve The pulmonic valve is not well visualized. Great Vessels Normal sized aortic root. Pericardium/Pleural No pericardial effusion. MMode/2D Measurements & Calculations LVIDd: 4.6 cm IVSd: 1.3 cm Ao root diam: 3.6 cm LVIDs: 3.4 cm LVPWd: 1.1 cm RVDd: 3.3 cm FS: 27.3 % LVAd ap4: 23.2 cm2 SV(MOD-sp4): 26.4 ml SV(sp4-el): 30.8 ml LVLd ap4: 7.0 cm EDV(MOD-sp4): 63.3 ml EDV(sp4-el): 66.4 ml LVAs ap4: 17.4 cm2 LVLs ap4: 7.2 cm ESV(MOD-sp4): 36.9 ml ESV(sp4-el): 35.6 ml EF(MOD-sp4): 41.8 % EF(sp4-el): 46.4 % LA A4 area: 14.0 cm2 RA A4 area: 18.1 cm2 Doppler Measurements & Calculations MV E max myron: 55.0 cm/sec Med Peak E' Myron: 3.0 cm/sec Ao V2 max: 105.7 cm/sec MV A max myron: 44.7 cm/sec E/E' med: 18.1 Ao max P.5 mmHg MV E/A: 1.2 AI max myron: 354.1 cm/sec LV V1 max: 85.6 cm/sec PA V2 max: 90.5 cm/sec AI max P.3 mmHg LV V1 max P.9 mmHg AI dec slope: 116.9 cm/sec2 AI P1/2t: 887.6 msec ECHO/Echo Complete Interpretation Summary The study was technically difficult. Left ventricular systolic function is normal. The estimated ejection fraction is 55 %. Trivial mitral valve insufficiency. Trivial tricuspid valve insufficiency. Trivial aortic valve insufficiency. Unable to estimate RV systolic pressure/pulmonary artery pressure due to techni kat difficult study. Transmitral diastolic flow velocities suggest diastolic dysfunction (pseudonorm al pattern). Ordering Physician: Hector Florence Referring Physician: Hector Florence Performed By: Betsy Clements RCS
== END | disposition home or self-care (01) ==
LOC: CVS 07:54
PROVIDERS: PCP Family Medicine; Referring Provider Internal Medicine Cardiovascular Disease; Visit Provider Internal Medicine Cardiovascular Disease
DX: R53.83 Other fatigue (principal); I21.3 ST elevation (STEMI) myocardial infarction of unspecified site; I25.5 Ischemic cardiomyopathy; I25.10 Atherosclerotic heart disease of native coronary artery without angina pectoris; Z95.5 Presence of coronary angioplasty implant and graft
CPT/HCPCS: 93306

== ENCOUNTER → 2022-10-08 | Outpatient (CLI) | payer MEDICARE, SELFPAY ==
[2021-07-28 07:17] VITALS: BMI 27.2
[2022-10-08 15:55] LABS: ALB/GLOB Ratio 1.2 RATIO (0.9-2.4); AST(SGOT) 19 U/L (15-37); Alanine Aminotransfer ALT/SGPT 29 U/L (16-61); Albumin, Serum 3.9 g/dL (3.2-5.0); Alkaline Phosphatase 91 U/L (45-117); Anion Gap 7 (5-15); BUN 19 mg/dL (7-18); Calcium,Total 9.4 mg/dL (8.5-10.1); Chloride 104 mmol/L (98-107); Cholesterol 97 mg/dL (200); EST Glomerular Filtration Rate 78 mL/min (>60); Est Glom Filt Rate - Afr Amer 94 mL/min (>60); Globulin 3.2 g/dL (2.2-4.2); Glucose 180 mg/dL (74-106); High Density Lipoprotein 41 mg/dL; Potassium 4.1 mmol/L (3.5-5.1); Protein, Total 7.1 g/dL (6.4-8.2); Sodium Level 140 mmol/L (136-145); Triglycerides 144 mg/dL; Very Low Density Lipoprotein 29 mg/dL (5-40)
[2022-10-08 15:56] LABS: Hemoglobin A1c 7.3 % (3.8-5.6)
[2022-10-08 15:59] LABS: Microalbumin:Creatinine Ratio 197.5 mg/g CRE (<30 mg/g CRE)
[2022-10-08 16:00] LABS: Absolute Neutrophil Count 4.1 X10^3/uL (2.0-7.7); Basophil# 0.05 X10^3/uL; Basophil% 0.8 % (0-1); Eosinophil# 0.23 X10^3/uL; Eosinophils% 3.6 % (0-5); Hematocrit 43.7 % (40-54); Hemoglobin 14.1 g/dL (13.0-16.5); Lymphocyte % 23.2 % (19-41); Mean Corp Hgb Conc 32.3 g/dL (32-36); Mean Corpuscular Hgb 30.7 pg (27.0-32.0); Mean Corpuscular Volume 95.2 fL (80-94); Mean Platelet Vol. 9.8 fl (6.2-12.0); Monocyte# 0.52 X10^3/uL; NRBC Flagged by Analyzer 0 % (0-5); Neutrophil # 4.14 X10^3/uL (2.7-7.7); Neutrophil % 64.1 % (47-70); Platelet Count 214 K/mm3 (150-450); RBC Distribution Width CV 13.4 % (11.6-14.6); RBC Distribution Width SD 46.8 fl (35.1-43.9); Red Blood Count 4.59 M/mm3 (4.6-6.2); White Blood Count 6.5 K/mm3 (4.4-11.0)
[2022-10-08 16:22] LABS: Vitamin B12 315 pg/mL (211-911)
== END | disposition home or self-care (01) ==
LOC: BFHLAB 13:42
PROVIDERS: PCP Family Medicine; Visit Provider Family Medicine
DX: E11.21 Type 2 diabetes mellitus with diabetic nephropathy (principal); I25.10 Atherosclerotic heart disease of native coronary artery without angina pectoris; Z51.81 Encounter for therapeutic drug level monitoring
CPT/HCPCS: 36415; 80053; 80061; 82043; 82570; 82607; 83036; 85025

== ENCOUNTER → 2023-08-29 | Outpatient (CLI) | payer MEDICARE, SELFPAY ==
[2021-07-28 07:17] VITALS: BMI 27.2
[2023-08-29 15:37] LABS: Absolute Lymphocyte Count 1.46 X10^3/uL (0.83-4.51); Absolute Neutrophil Count 4.1 X10^3/uL (2.0-7.7); Basophil# 0.06 X10^3/uL; Basophil% 0.9 % (0-1); Eosinophil# 0.24 X10^3/uL; Eosinophils% 3.7 % (0-5); Hematocrit 44.1 % (40-54); Hemoglobin 14.4 g/dL (13.0-16.5); Lymphocyte # 1.46 X10^3/ul (0.83-4.51); Lymphocyte % 22.3 % (19-41); Mean Corp Hgb Conc 32.7 g/dL (32-36); Mean Corpuscular Hgb 30.6 pg (27.0-32.0); Mean Corpuscular Volume 93.6 fL (80-94); Mean Platelet Vol. 9.8 fl (6.2-12.0); Monocyte# 0.69 X10^3/uL; Monocyte% 10.6 % (0-10); NRBC Flagged by Analyzer 0 % (0-5); Neutrophil # 4.08 X10^3/uL (2.7-7.7); Neutrophil % 62.3 % (47-70); Platelet Count 243 K/mm3 (150-450); RBC Distribution Width CV 13.4 % (11.6-14.6); RBC Distribution Width SD 46.4 fl (35.1-43.9); Red Blood Count 4.71 M/mm3 (4.6-6.2); White Blood Count 6.5 K/mm3 (4.4-11.0)
[2023-08-29 16:16] LABS: Hemoglobin A1c 7.9 % (3.8-5.6)
[2023-08-29 16:34] LABS: ALB/GLOB Ratio 1.1 RATIO (0.9-2.4); AST(SGOT) 22 U/L (15-37); Alanine Aminotransfer ALT/SGPT 30 U/L (16-61); Alkaline Phosphatase 103 U/L (45-117); Anion Gap 5 (5-15); BUN 19 mg/dL (7-18); BUN/Creat Ratio 17.8 RATIO (10-20); Calcium,Total 9.6 mg/dL (8.5-10.1); Chloride 103 mmol/L (98-107); Cholesterol 97 mg/dL (200); Creatinine, Serum 1.07 mg/dL (0.70-1.30); EST Glomerular Filtration Rate 72 mL/min (>60); Est Glom Filt Rate - Afr Amer 87 mL/min (>60); Globulin 3.5 g/dL (2.2-4.2); Glucose 252 mg/dL (74-106); High Density Lipoprotein 43 mg/dL; Potassium 4.4 mmol/L (3.5-5.1); Protein, Total 7.5 g/dL (6.4-8.2); Sodium Level 137 mmol/L (136-145); Triglycerides 152 mg/dL; Very Low Density Lipoprotein 30 mg/dL (5-40)
[2023-08-29 16:39] LABS: Microalbumin,Random Urine 77.2 mg/L (NO RANGE EST.); Microalbumin:Creatinine Ratio 179.5 mg/g CRE (<30 mg/g CRE)
== END | disposition home or self-care (01) ==
LOC: BFHLAB 13:09
PROVIDERS: PCP Family Medicine; Referring Provider Family Medicine; Visit Provider Family Medicine
DX: E11.40 Type 2 diabetes mellitus with diabetic neuropathy, unspecified (principal); I25.10 Atherosclerotic heart disease of native coronary artery without angina pectoris
CPT/HCPCS: 36415; 80053; 80061; 82043; 82570; 83036; 85025

== ENCOUNTER → 2024-03-04 | Outpatient (CLI) | payer MEDICARE, SELFPAY ==
[2021-07-28 07:17] VITALS: BMI 27.2
[2024-03-04 15:26] LABS: Anion Gap 7 (5-15); BUN 18 mg/dL (7-18); BUN/Creat Ratio 16.4 RATIO (10-20); Calcium,Total 9.7 mg/dL (8.5-10.1); Chloride 101 mmol/L (98-107); EST Glomerular Filtration Rate 69 mL/min (>60); Est Glom Filt Rate - Afr Amer 84 mL/min (>60); Glucose 303 mg/dL (74-106); Potassium 4.5 mmol/L (3.5-5.1); Sodium Level 137 mmol/L (136-145)
== END | disposition home or self-care (01) ==
LOC: MTLAB 11:41
PROVIDERS: PCP Family Medicine; Referring Provider Family Medicine; Visit Provider Family Medicine
DX: R53.83 Other fatigue (principal); Z51.81 Encounter for therapeutic drug level monitoring
CPT/HCPCS: 36415; 80048; 84403

== ENCOUNTER → 2024-05-29 | Outpatient (CLI) | payer MEDICARE, SELFPAY ==
[2021-07-28 07:17] VITALS: BMI 27.2
[2024-05-29 12:11] LABS: Absolute Lymphocyte Count 1.46 X10^3/uL (0.83-4.51); Absolute Neutrophil Count 5.1 X10^3/uL (2.0-7.7); Basophil# 0.06 X10^3/uL; Basophil% 0.8 % (0-1); Eosinophils% 3.9 % (0-5); Hematocrit 44.1 % (40-54); Hemoglobin 14.7 g/dL (13.0-16.5); Lymphocyte # 1.46 X10^3/ul (0.83-4.51); Lymphocyte % 19.2 % (19-41); Mean Corp Hgb Conc 33.3 g/dL (32-36); Mean Corpuscular Hgb 31.2 pg (27.0-32.0); Mean Corpuscular Volume 93.6 fL (80-94); Mean Platelet Vol. 9.9 fl (6.2-12.0); Monocyte# 0.61 X10^3/uL; NRBC Flagged by Analyzer 0 % (0-5); Neutrophil # 5.12 X10^3/uL (2.7-7.7); Neutrophil % 67.3 % (47-70); Platelet Count 213 K/mm3 (150-450); RBC Distribution Width CV 13.2 % (11.6-14.6); RBC Distribution Width SD 45.2 fl (35.1-43.9); Red Blood Count 4.71 M/mm3 (4.6-6.2); White Blood Count 7.6 K/mm3 (4.4-11.0)
[2024-05-29 12:38] LABS: Microalbumin:Creatinine Ratio 157.4 mg/g CRE (<30 mg/g CRE)
[2024-05-29 12:46] LABS: ALB/GLOB Ratio 1.1 RATIO (0.9-2.4); AST(SGOT) 14 U/L (15-37); Alanine Aminotransfer ALT/SGPT 21 U/L (16-61); Albumin, Serum 3.9 g/dL (3.2-5.0); Alkaline Phosphatase 88 U/L (45-117); Anion Gap 4 (5-15); BUN 16 mg/dL (7-18); BUN/Creat Ratio 15.7 RATIO (10-20); Calcium,Total 9.3 mg/dL (8.5-10.1); Chloride 102 mmol/L (98-107); Cholesterol 102 mg/dL (200); Creatinine, Serum 1.02 mg/dL (0.70-1.30); EST Glomerular Filtration Rate 76 mL/min (>60); Est Glom Filt Rate - Afr Amer 92 mL/min (>60); Globulin 3.4 g/dL (2.2-4.2); Glucose 165 mg/dL (74-106); High Density Lipoprotein 43 mg/dL; Potassium 4.5 mmol/L (3.5-5.1); Protein, Total 7.3 g/dL (6.4-8.2); Sodium Level 135 mmol/L (136-145); Triglycerides 109 mg/dL; Very Low Density Lipoprotein 22 mg/dL (5-40)
[2024-05-29 13:07] LABS: Hemoglobin A1c 7.5 % (3.8-5.6)
== END | disposition home or self-care (01) ==
LOC: BFHLAB 09:09
PROVIDERS: PCP Family Medicine; Visit Provider Family Medicine
DX: E11.40 Type 2 diabetes mellitus with diabetic neuropathy, unspecified (principal); I25.10 Atherosclerotic heart disease of native coronary artery without angina pectoris
CPT/HCPCS: 36415; 80053; 80061; 82043; 82570; 83036; 85025

== ENCOUNTER → 2025-05-31 | Outpatient (CLI) | payer MEDICARE, SELFPAY ==
[2021-07-28 07:17] VITALS: BMI 27.2
[2025-05-31 10:35] LABS: Hematocrit 40.7 % (40-54); Hemoglobin 13.5 g/dL (13.0-16.5); Immature Granulocytes Count 0.020 X10^3/uL (0.0-0.0); Mean Corp Hgb Conc 33.2 g/dL (32-36); Mean Corpuscular Volume 94.2 fL (80-94); Mean Platelet Vol. 9.8 fl (6.2-12.0); NRBC Flagged by Analyzer 0 % (0-5); Platelet Count 184 K/mm3 (150-450); RBC Distribution Width CV 13.3 % (11.6-14.6); RBC Distribution Width SD 46.1 fl (35.1-43.9); Red Blood Count 4.32 M/mm3 (4.6-6.2); White Blood Count 7.2 K/mm3 (4.4-11.0)
[2025-05-31 10:51] LABS: AST(SGOT) 23 U/L (<=37); Alanine Aminotransfer ALT/SGPT 24 U/L (<=46); Albumin, Serum 4.4 g/dL (3.4-4.8); Alkaline Phosphatase 71 U/L (40-129); Anion Gap 10 (5-15); BUN 18 mg/dL (4-19); BUN/Creat Ratio 19.3 RATIO (10-20); Calcium,Total 9.4 mg/dL (7.6-11.0); Carbon Dioxide 27.4 mmol/L (21.0-32.0); Chloride 101 mmol/L (98-108); Cholesterol 87 mg/dL (<=200); Globulin 2.4 g/dL (2.2-4.2); Glucose 165 mg/dL (70-99); Low Density Lipoprotein Calc. 25 mg/dL; Potassium 4.7 mmol/L (3.3-5.1); Triglycerides 80 mg/dL; Very Low Density Lipoprotein 16 mg/dL (5-40); cholesterol:hdl ratio screen 1.92
[2025-05-31 10:54] LABS: Creatinine, Urine (random) 112.00 mg/dL (39.00-259.00); Microalbumin,Random Urine 183.0 mg/L (<20 mg/L)
== END | disposition home or self-care (01) ==
LOC: MTLAB 09:18
PROVIDERS: PCP Family Medicine; Referring Provider Family Medicine; Visit Provider Family Medicine
DX: E11.40 Type 2 diabetes mellitus with diabetic neuropathy, unspecified (principal); I25.10 Atherosclerotic heart disease of native coronary artery without angina pectoris
CPT/HCPCS: 36415; 80053; 80061; 82043; 82570; 85025